=== PATIENT | female | born 1960 | race Caucasian/White ===

== ENCOUNTER 2021-04-16 16:07 | Inpatient (IN) | payer BC, OTHER, SELFPAY ==
[2021-04-16] MEDS ORDERED: Dexamethasone 10 MG/ML VIAL ONE (16:47)
[2021-04-16] MEDS ORDERED: Ondansetron PF 4 MG/2 ML Vial ONE (16:47)
[2021-04-16] MEDS ORDERED: Ventolin HFA Inhaler 60 PUFF INHALER ONE (17:01)
[2021-04-16 17:03] LABS: #Eosinphils 0.1 10x3/uL (0.0-0.5); #Monocytes 0.2 10x3/uL (0.0-1.1); #Neutrophils 1.4 10x3/uL (1.5-8.4); %Basophils 0.9 % (0.0-2.0); %Eosinophils 3.9 % (0.0-6.0); %Lymphocytes 17.9 % (18.0-47.0); %Monocytes 9.6 % (0.0-10.0); %Neutrophils 62.9 % (40.0-75.0); Hemoglobin 8.3 g/dL (12.0-15.5); Mean Corpuscular HGB CONC 31.9 g/dL (32.0-36.0); Mean Corpuscular Hemoglobin 31.2 pg (27.0-33.0); Mean Corpuscular Volume 97.7 fl (81.6-98.3); Mean Platelet Volume 8.7 fl (7.4-10.4); Platelet Count 135 10x3/uL (150-450); RBC Distribution Width 15.3 % (11.5-14.5); Red Blood Cell (RBC) Count 2.66 10x6/uL (3.90-5.03); White Blood Cell (WBC) Count 2.3 10x3/uL (3.5-10.5)
[2021-04-16 17:47] LABS: ALT (SGPT) 6 U/L (8-55); AST (SGOT) 24 U/L (5-34); Albumin 3.2 g/dL (3.4-4.8); Alkaline Phosphatase 70 U/L (40-110); Anion Gap 23 mmol/L (10-20); BUN (Urea Nitrogen) 54 mg/dL (9.8-20.1); Bilirubin, Total 0.3 mg/dL (0.2-1.2); Calc. Creatinine Clearance 0 mL/min (70-130); Chloride 110 mmol/L (98-107); Glucose 71 mg/dL (80-115); Potassium 3.9 mmol/L (3.5-5.1); Protein, Total 6.2 g/dL (5.8-8.1); Sodium 138 mmol/L (136-145)
[2021-04-16] MEDS ORDERED: cefTRIAXone\\ROCEPHIN 2 GM VIAL ONE (17:55)
[2021-04-16] MEDS ORDERED: Azithromycin 500 MG VIAL ONE (17:55)
[2021-04-16 18:04] LABS: SARS-CoV-2 NAA Rapid Test DETECTED (NotDetected)
[2021-04-16 18:12] LABS: Carbon Dioxide 8 mmol/L (23-31)
[2021-04-16 20:13] LABS: Troponin I 0.089 ng/mL (< 0.028)
[2021-04-16 20:16] LABS: Magnesium 1.7 mg/dL (1.6-2.6); Phosphorus 7.9 mg/dL (2.3-4.7)
[2021-04-16] MEDS ORDERED: Aspirin Chewable 81 MG TAB ONE (20:40)
[2021-04-16] MEDS ORDERED: Heparin 5,000 UNITS/ML VIAL ONE (20:40)
[2021-04-16] MEDS ORDERED: Ascorbic Acid 500 mg Chewable Tablet ONE (20:42)
[2021-04-16] MEDS ORDERED: Ventolin HFA Inhaler 60 PUFF INHALER INH PRN (20:59)
[2021-04-16] MEDS ORDERED: Aspirin 81 mg Enteric Coated Tablet PO SCH (21:00)
[2021-04-16] MEDS ORDERED: Cholecalciferol 1,000 UNITS (25 MCG) TAB PO SCH (21:00)
[2021-04-16] MEDS: Sodium Chloride 0.9% 1,000 ML IV SCH (21:00)
[2021-04-16] MEDS: Heparin 5,000 UNITS/ML VIAL SC SCH (21:03)
[2021-04-16] MEDS: Ascorbic Acid 500 mg Chewable Tablet PO SCH (21:09)
[2021-04-16 22:50] LABS: Troponin I 0.088 ng/mL (< 0.028)
[2021-04-17 01:46] LABS: Bilirubin Neg (Negative); Blood, Urine Negative (Negative); Clarity Clear (Clear); Glucose, Urine (Dipstick) 100 mg/dL (Negative); Ketone, Urine 15 mg/dL (Negative); Leukocyte Negative (Negative); Nitrite Negative (Negative); Protein, Urine (Dipstick) 500 mg/dl (Neg-Trace); Urobilinogen Normal mg/dL (Less than 2)
[2021-04-17 02:09] LABS: Urine Culture Reflex No No
[2021-04-17 02:13] LABS: Bacteria/HPF None Seen HPF (None Seen); RBC/HPF 0-3 HPF (0-3); WBC/HPF 0-3 HPF (0-3)
[2021-04-17] MEDS: Sodium Chloride 0.9% 1,000 ML IV SCH (05:40)
[2021-04-17 05:49] LABS: Anion Gap 19 mmol/L (10-20); BUN (Urea Nitrogen) 53 mg/dL (9.8-20.1); CRP (Inflammatory) 4.11 mg/dL (= or < 0.5); Calc. Creatinine Clearance 0 mL/min (70-130); Calcium 6.9 mg/dL (7.8-10.44); Carbon Dioxide 10 mmol/L (23-31); Chloride 114 mmol/L (98-107); Glucose 191 mg/dL (80-115); Iron 33 ug/dL (50-170); Iron Binding Capacity, Total 168 mcg/dL (265-497); Potassium 3.8 mmol/L (3.5-5.1); Sodium 139 mmol/L (136-145)
[2021-04-17 05:52] LABS: Mean Corpuscular HGB CONC 32.6 g/dL (32.0-36.0); Mean Corpuscular Hemoglobin 31.3 pg (27.0-33.0); Mean Platelet Volume 9.1 fl (7.4-10.4); Platelet Count 104 10x3/uL (150-450); RBC Distribution Width 15.2 % (11.5-14.5); Red Blood Cell (RBC) Count 2.24 10x6/uL (3.90-5.03); White Blood Cell (WBC) Count 1.4 10x3/uL (3.5-10.5)
[2021-04-17 06:06] LABS: Ferritin 1399.35 ng/mL (10-291)
[2021-04-17 06:52] LABS: MDiff Complete? YES; Microcytosis SLIGHT = 6-15 cells (100X) (0-5/hpf)
[2021-04-17 06:53] LABS: Anisocytosis MODERATE=16-30 cells (100X) (0-5/hpf); Platelet Morphology Comment Appears Decreased; Schistocytes SLIGHT = 2-5 cells (100X) (0-1/hpf); Tear Drops SLIGHT = 2-5 cells (100X) (0-1/hpf)
[2021-04-17 06:57] LABS: Band 12 % (5-11); Lymphocytes 21 % (21-51); Monocytes 3 % (0-10); Neutrophil 61 % (42-75); Reactive Lymphocytes 2 % (0-10)
[2021-04-17] MEDS ORDERED: Cholecalciferol 1,000 UNITS (25 MCG) TAB PO SCH (09:00)
[2021-04-17] MEDS ORDERED: Ascorbic Acid 500 mg Chewable Tablet ONE (09:00)
[2021-04-17] MEDS ORDERED: Sodium Bicarbonate 75 MEQ, Admixture Fee 1 EACH in Dextrose 5% in Water 500 ML IV SCH (09:00)
[2021-04-17] MEDS ORDERED: Zinc Sulfate 220 MG CAP ONE (09:01)
[2021-04-17] MEDS: Aspirin 81 mg Enteric Coated Tablet PO SCH (09:01)
[2021-04-17] MEDS: Ascorbic Acid 500 mg Chewable Tablet PO SCH ×2 (09:01→22:18)
[2021-04-17] MEDS: Zinc Sulfate 220 MG CAP PO SCH (09:01)
[2021-04-17] MEDS ORDERED: Cholecalciferol 1,000 UNITS (25 MCG) TAB ONE (09:01)
[2021-04-17] MEDS ORDERED: Heparin 5,000 UNITS/ML VIAL ONE (09:02)
[2021-04-17] MEDS ORDERED: Aspirin Chewable 81 MG TAB ONE (09:02)
[2021-04-17] MEDS: Heparin 5,000 UNITS/ML VIAL SC SCH ×3 (09:03→22:45)
[2021-04-17 13:00] LABS: Vitamin B12 Greater than 2000 pg/mL (211-911)
[2021-04-17] MEDS: Azithromycin 500 MG in Sodium Chloride 0.9% 250 ML 250 ML IVPB SCH (17:14)
[2021-04-17] MEDS: Nicotine 14 MG PATCH TD SCH (17:15)
[2021-04-17] MEDS: Calcium Carbonate 600 MG + Vit D TAB PO SCH (17:15)
[2021-04-17] MEDS: Sodium Bicarbonate 75 MEQ, Admixture Fee 1 EACH in Dextrose 5% in Water 500 ML IV SCH (17:36)
[2021-04-17] MEDS ORDERED: cefTRIAXone\\ROCEPHIN 1 GM in Sodium Chloride 0.9% 100 ML IVPB SCH (18:00)
[2021-04-17] MEDS ORDERED: Ondansetron PF 4 MG/2 ML Vial IVP PRN (19:38)
[2021-04-17] MEDS ORDERED: Promethazine 25 MG TAB PO PRN (19:40)
[2021-04-17] MEDS: cefTRIAXone\\ROCEPHIN 1 GM in Sodium Chloride 0.9% 100 ML IVPB SCH (22:19)
[2021-04-17] MEDS ORDERED: Sodium Chloride 0.9% 1,000 ML IV SCH (23:45)
[2021-04-18] MEDS ORDERED: Metoprolol Tartrate 5 MG/5 ML VIAL IVP SCH (01:45)
[2021-04-18] MEDS ORDERED: methylPREDNISolone Sod Succ/PF 125 MG/2 ML VIAL IVP SCH (02:00)
[2021-04-18] MEDS ORDERED: Furosemide 40 MG/4 ML VIAL SLOW IVP SCH (02:00)
[2021-04-18] MEDS ORDERED: Furosemide 40 MG/4 ML VIAL ONE (02:06)
[2021-04-18] MEDS ORDERED: Ventolin HFA Inhaler 60 PUFF INHALER INH SCH (02:15)
[2021-04-18] MEDS: Ventolin HFA Inhaler 60 PUFF INHALER INH SCH ×6 (03:23→23:10)
[2021-04-18] MEDS: Acetaminophen 325 MG TAB PO PRN (04:38)
[2021-04-18] MEDS ORDERED: cloNIDine 0.1 MG TAB PO SCH (04:45)
[2021-04-18 06:07] LABS: Hemoglobin 7.2 g/dL (12.0-15.5); MDiff Complete? YES; Manual Diff?? YES; Mean Corpuscular HGB CONC 32.4 g/dL (32.0-36.0); Mean Corpuscular Hemoglobin 31.2 pg (27.0-33.0); Mean Corpuscular Volume 96.1 fl (81.6-98.3); Mean Platelet Volume 9.4 fl (7.4-10.4); Platelet Count 110 10x3/uL (150-450); Red Blood Cell (RBC) Count 2.31 10x6/uL (3.90-5.03); White Blood Cell (WBC) Count 1.4 10x3/uL (3.5-10.5)
[2021-04-18 06:15] LABS: ALT (SGPT) Less than 6 U/L (8-55); AST (SGOT) 18 U/L (5-34); Albumin 2.7 g/dL (3.4-4.8); Alkaline Phosphatase 56 U/L (40-110); Anion Gap 17 mmol/L (10-20); BUN (Urea Nitrogen) 50 mg/dL (9.8-20.1); Bilirubin, Total 0.2 mg/dL (0.2-1.2); Calc. Creatinine Clearance 8 mL/min (70-130); Calcium 6.8 mg/dL (7.8-10.44); Carbon Dioxide 12 mmol/L (23-31); Chloride 113 mmol/L (98-107); Globulin 2.8 g/dL (2.4-3.5); Glucose 133 mg/dL (80-115); Protein, Total 5.5 g/dL (5.8-8.1); Sodium 139 mmol/L (136-145)
[2021-04-18 06:20] LABS: Phosphorus 5.7 mg/dL (2.3-4.7)
[2021-04-18 07:05] LABS: Band 17 % (5-11); Lymphocytes 12 % (21-51); Metamyelocyte 1 % (0-0); Monocytes 3 % (0-10); Neutrophil 66 % (42-75); Nucleated RBC 1 % (0); Reactive Lymphocytes 1 % (0-10)
[2021-04-18 07:07] LABS: Anisocytosis SLIGHT = 6-15 cells (100X) (0-5/hpf); Hypochromia SLIGHT = 6-15 cells (100X) (0-5/hpf); Macrocytosis SLIGHT = 6-15 cells (100X) (0-5/hpf); Microcytosis SLIGHT = 6-15 cells (100X) (0-5/hpf); Platelet Morphology Comment Appears Decreased
[2021-04-18 07:08] LABS: Tear Drops SLIGHT = 2-5 cells (100X) (0-1/hpf)
[2021-04-18 08:36] LABS: Magnesium 1.3 mg/dL (1.6-2.6)
[2021-04-18] MEDS: methylPREDNISolone Sod Succ/PF 125 MG/2 ML VIAL IVP SCH ×3 (09:26→20:14)
[2021-04-18] MEDS: Calcium Carbonate 600 MG + Vit D TAB PO SCH ×2 (09:26→17:07)
[2021-04-18] MEDS: Potassium Bicarbonate/Cit Ac 20 MEQ TAB PO SCH ×2 (09:26→14:30)
[2021-04-18] MEDS: Metoprolol Tartrate 25 MG TAB PO SCH ×2 (09:27→20:15)
[2021-04-18] MEDS: Heparin 5,000 UNITS/ML VIAL SC SCH (09:27)
[2021-04-18] MEDS: Ascorbic Acid 500 mg Chewable Tablet PO SCH ×2 (09:27→20:15)
[2021-04-18] MEDS: Aspirin 81 mg Enteric Coated Tablet PO SCH (09:27)
[2021-04-18] MEDS: Amlodipine 5 MG TAB PO SCH (09:27)
[2021-04-18] MEDS: Zinc Sulfate 220 MG CAP PO SCH (09:27)
[2021-04-18] MEDS: Sodium Bicarbonate 75 MEQ, Admixture Fee 1 EACH in Dextrose 5% in Water 500 ML IV SCH (09:41)
[2021-04-18] MEDS ORDERED: Magnesium Sulfate 4 GM in Sodium Chloride 0.9% 250 ML 250 ML IVPB SCH (09:45)
[2021-04-18] MEDS: Magnesium 2 GM/50 ML 2 GM in Premix Bag 1 BAG IVPB SCH ×2 (11:27→12:35)
[2021-04-18] MEDS ORDERED: Potassium Bicarbonate/Cit Ac 20 MEQ TAB PO SCH (14:30)
[2021-04-18] MEDS: Nicotine 14 MG PATCH TD SCH (14:31)
[2021-04-18] MEDS: Azithromycin 500 MG in Sodium Chloride 0.9% 250 ML 250 ML IVPB SCH (17:07)
[2021-04-18] MEDS: cefTRIAXone\\ROCEPHIN 1 GM in Sodium Chloride 0.9% 100 ML IVPB SCH (20:15)
[2021-04-18] MEDS: Melatonin 3 MG TAB PO PRN (22:11)
[2021-04-19] MEDS: Sodium Bicarbonate 75 MEQ, Admixture Fee 1 EACH in Dextrose 5% in Water 500 ML IV SCH ×3 (00:43→17:27)
[2021-04-19] MEDS: methylPREDNISolone Sod Succ/PF 125 MG/2 ML VIAL IVP SCH ×4 (02:35→20:23)
[2021-04-19] MEDS: Ventolin HFA Inhaler 60 PUFF INHALER INH SCH ×6 (02:47→23:03)
[2021-04-19 07:16] LABS: Hemoglobin 6.3 g/dL (12.0-15.5); Mean Corpuscular HGB CONC 33.7 g/dL (32.0-36.0); Mean Corpuscular Hemoglobin 31.5 pg (27.0-33.0); Mean Corpuscular Volume 93.5 fl (81.6-98.3); Mean Platelet Volume 9.4 fl (7.4-10.4); Platelet Count 100 10x3/uL (150-450); RBC Distribution Width 14.6 % (11.5-14.5); White Blood Cell (WBC) Count 1.4 10x3/uL (3.5-10.5)
[2021-04-19 07:22] LABS: MDiff Complete? YES; Manual Diff?? YES
[2021-04-19 07:44] LABS: ALT (SGPT) Less than 6 U/L (8-55); AST (SGOT) 14 U/L (5-34); Albumin 2.5 g/dL (3.4-4.8); Alkaline Phosphatase 46 U/L (40-110); Anion Gap 18 mmol/L (10-20); BUN (Urea Nitrogen) 50 mg/dL (9.8-20.1); Bilirubin, Total 0.2 mg/dL (0.2-1.2); Calc. Creatinine Clearance 8 mL/min (70-130); Calcium 6.9 mg/dL (7.8-10.44); Carbon Dioxide 19 mmol/L (23-31); Chloride 105 mmol/L (98-107); Globulin 2.5 g/dL (2.4-3.5); Glucose 217 mg/dL (80-115); Magnesium 2.4 mg/dL (1.6-2.6); Potassium 3.4 mmol/L (3.5-5.1); Sodium 139 mmol/L (136-145)
[2021-04-19 08:16] LABS: Monocytes 5 % (0-10); Reactive Lymphocytes 1 % (0-10)
[2021-04-19 08:17] LABS: Band 5 % (5-11); Lymphocytes 8 % (21-51); Neutrophil 81 % (42-75)
[2021-04-19 08:18] LABS: Platelet Morphology Comment Appears Decreased
[2021-04-19 08:23] LABS: Ovalocytes SLIGHT = 2-5 cells (100X) (0-1/hpf)
[2021-04-19] MEDS: Ascorbic Acid 500 mg Chewable Tablet PO SCH ×2 (08:31→20:23)
[2021-04-19] MEDS: Amlodipine 5 MG TAB PO SCH (08:31)
[2021-04-19] MEDS: Metoprolol Tartrate 25 MG TAB PO SCH ×2 (08:31→20:23)
[2021-04-19] MEDS: Calcium Carbonate 600 MG + Vit D TAB PO SCH ×2 (08:31→17:26)
[2021-04-19] MEDS: Zinc Sulfate 220 MG CAP PO SCH (08:31)
[2021-04-19] MEDS: Aspirin 81 mg Enteric Coated Tablet PO SCH (08:31)
[2021-04-19] MEDS: Pantoprazole 40 MG VIAL IVP SCH ×2 (11:50→20:24)
[2021-04-19] MEDS ORDERED: Amlodipine 5 MG TAB PO SCH (14:00)
[2021-04-19] MEDS ORDERED: Potassium Bicarbonate/Cit Ac 20 MEQ TAB PO SCH (14:00)
[2021-04-19] MEDS ORDERED: Megestrol Acetate 400 MG/10 ML UDCUP PO SCH (14:00)
[2021-04-19] MEDS ORDERED: EPOETIN ALFA-EPBX (ESRD) 3,000 UNIT/ML VIAL SC SCH (14:00)
[2021-04-19] MEDS: Nicotine 14 MG PATCH TD SCH (14:30)
[2021-04-19] MEDS: ALPRAZolam 0.5 MG TAB PO PRN ×2 (14:34→20:24)
[2021-04-19 15:55] LABS: Creatinine, Urine 52.64 mg/dL (47-110)
[2021-04-19] MEDS: Ferrous Sulfate 325 MG TAB PO SCH (17:26)
[2021-04-19] MEDS: Azithromycin 500 MG in Sodium Chloride 0.9% 250 ML 250 ML IVPB SCH (17:26)
[2021-04-19] MEDS: cefTRIAXone\\ROCEPHIN 1 GM in Sodium Chloride 0.9% 100 ML IVPB SCH (20:23)
[2021-04-19] MEDS: Melatonin 3 MG TAB PO PRN (20:24)
[2021-04-20] MEDS: Sodium Bicarbonate 75 MEQ, Admixture Fee 1 EACH in Dextrose 5% in Water 500 ML IV SCH (01:21)
[2021-04-20] MEDS: methylPREDNISolone Sod Succ/PF 125 MG/2 ML VIAL IVP SCH ×3 (01:21→22:17)
[2021-04-20] MEDS: Ventolin HFA Inhaler 60 PUFF INHALER INH SCH ×7 (03:10→23:05)
[2021-04-20 05:42] LABS: #Monocytes 0.1 10x3/uL (0.0-1.1); %Lymphocytes 4.8 % (18.0-47.0); %Monocytes 3.6 % (0.0-10.0); Hemoglobin 8.5 g/dL (12.0-15.5); Mean Corpuscular Hemoglobin 30.1 pg (27.0-33.0); Mean Corpuscular Volume 88.7 fl (81.6-98.3); Mean Platelet Volume 9.5 fl (7.4-10.4); Platelet Count 112 10x3/uL (150-450); RBC Distribution Width 16.5 % (11.5-14.5); Red Blood Cell (RBC) Count 2.82 10x6/uL (3.90-5.03); White Blood Cell (WBC) Count 3.3 10x3/uL (3.5-10.5)
[2021-04-20 05:50] LABS: ALT (SGPT) Less than 6 U/L (8-55); AST (SGOT) 15 U/L (5-34); Albumin 2.6 g/dL (3.4-4.8); Alkaline Phosphatase 50 U/L (40-110); Anion Gap 19 mmol/L (10-20); BUN (Urea Nitrogen) 53 mg/dL (9.8-20.1); Bilirubin, Total 0.3 mg/dL (0.2-1.2); Calc. Creatinine Clearance 9 mL/min (70-130); Calcium 6.7 mg/dL (7.8-10.44); Carbon Dioxide 23 mmol/L (23-31); Chloride 101 mmol/L (98-107); Glucose 181 mg/dL (80-115); Potassium 3.6 mmol/L (3.5-5.1); Protein, Total 5.6 g/dL (5.8-8.1); Sodium 139 mmol/L (136-145)
[2021-04-20] MEDS: Calcium Carbonate 600 MG + Vit D TAB PO SCH (09:20)
[2021-04-20] MEDS: Lactated Ringer's 1,000 ML IV SCH ×3 (09:20→21:00)
[2021-04-20] MEDS: Ferrous Sulfate 325 MG TAB PO SCH ×2 (09:20→16:47)
[2021-04-20] MEDS: Metoprolol Tartrate 25 MG TAB PO SCH ×2 (09:21→22:21)
[2021-04-20] MEDS: Megestrol Acetate 400 MG/10 ML UDCUP PO SCH (09:21)
[2021-04-20] MEDS: Ascorbic Acid 500 mg Chewable Tablet PO SCH ×2 (09:21→22:15)
[2021-04-20] MEDS: Pantoprazole 40 MG VIAL IVP SCH ×2 (09:21→22:20)
[2021-04-20] MEDS: Amlodipine 5 MG TAB PO SCH (09:21)
[2021-04-20] MEDS: Zinc Sulfate 220 MG CAP PO SCH (09:22)
[2021-04-20] MEDS ORDERED: Calcium Carbonate 500 MG ChewTAB PO PRN (10:06)
[2021-04-20] MEDS: Nicotine 14 MG PATCH TD SCH (13:33)
[2021-04-20] MEDS: ALPRAZolam 0.5 MG TAB PO PRN (15:44)
[2021-04-20] MEDS: Calcium Carbonate 500 MG ChewTAB PO SCH ×2 (15:44→22:16)
[2021-04-20] MEDS: Azithromycin 500 MG in Sodium Chloride 0.9% 250 ML 250 ML IVPB SCH (16:47)
[2021-04-20] MEDS: cefTRIAXone\\ROCEPHIN 1 GM in Sodium Chloride 0.9% 100 ML IVPB SCH (22:16)
[2021-04-21] MEDS: Ventolin HFA Inhaler 60 PUFF INHALER INH SCH ×6 (03:00→22:10)
[2021-04-21] MEDS: ALPRAZolam 0.5 MG TAB PO PRN (04:52)
[2021-04-21 05:28] LABS: #Monocytes 0.2 10x3/uL (0.0-1.1); #Neutrophils 4.7 10x3/uL (1.5-8.4); %Lymphocytes 3.3 % (18.0-47.0); %Neutrophils 92.9 % (40.0-75.0); Hemoglobin 9.1 g/dL (12.0-15.5); Mean Corpuscular HGB CONC 32.4 g/dL (32.0-36.0); Mean Corpuscular Hemoglobin 30.1 pg (27.0-33.0); Mean Platelet Volume 9.2 fl (7.4-10.4); Platelet Count 127 10x3/uL (150-450); RBC Distribution Width 16.5 % (11.5-14.5); Red Blood Cell (RBC) Count 3.02 10x6/uL (3.90-5.03); White Blood Cell (WBC) Count 5.1 10x3/uL (3.5-10.5)
[2021-04-21 05:29] LABS: ALT (SGPT) 6 U/L (8-55); AST (SGOT) 17 U/L (5-34); Albumin 2.7 g/dL (3.4-4.8); Alkaline Phosphatase 52 U/L (40-110); Anion Gap 20 mmol/L (10-20); BUN (Urea Nitrogen) 55 mg/dL (9.8-20.1); Bilirubin, Total 0.2 mg/dL (0.2-1.2); Calc. Creatinine Clearance 10 mL/min (70-130); Calcium 7.1 mg/dL (7.8-10.44); Carbon Dioxide 21 mmol/L (23-31); Chloride 101 mmol/L (98-107); Globulin 3.2 g/dL (2.4-3.5); Glucose 186 mg/dL (80-115); Potassium 4.2 mmol/L (3.5-5.1); Protein, Total 5.9 g/dL (5.8-8.1); Sodium 138 mmol/L (136-145)
[2021-04-21] MEDS: Megestrol Acetate 400 MG/10 ML UDCUP PO SCH (07:55)
[2021-04-21] MEDS: Pantoprazole 40 MG VIAL IVP SCH ×2 (07:55→22:00)
[2021-04-21] MEDS: Sodium Bicarbonate Tab 325 MG TAB PO SCH ×2 (07:56→22:15)
[2021-04-21] MEDS: methylPREDNISolone Sod Succ/PF 125 MG/2 ML VIAL IVP SCH ×2 (07:56→22:15)
[2021-04-21] MEDS: Zinc Sulfate 220 MG CAP PO SCH (07:56)
[2021-04-21] MEDS: Metoprolol Tartrate 50 MG TAB PO SCH ×2 (07:57→22:00)
[2021-04-21] MEDS: Calcium Carbonate 500 MG ChewTAB PO SCH ×3 (07:57→22:15)
[2021-04-21] MEDS: Ferrous Sulfate 325 MG TAB PO SCH ×2 (07:57→16:48)
[2021-04-21] MEDS: Amlodipine 5 MG TAB PO SCH (07:58)
[2021-04-21] MEDS: Ascorbic Acid 500 mg Chewable Tablet PO SCH ×2 (07:58→22:15)
[2021-04-21] MEDS: Nicotine 14 MG PATCH TD SCH (13:46)
[2021-04-21] MEDS: Lactated Ringer's 1,000 ML IV SCH (13:47)
[2021-04-21] MEDS: Azithromycin 500 MG in Sodium Chloride 0.9% 250 ML 250 ML IVPB SCH (16:49)
[2021-04-21] MEDS: cefTRIAXone\\ROCEPHIN 1 GM in Sodium Chloride 0.9% 100 ML IVPB SCH (22:00)
[2021-04-22] MEDS: ALPRAZolam 0.5 MG TAB PO PRN (00:26)
[2021-04-22] MEDS: Lactated Ringer's 1,000 ML IV SCH ×2 (01:00→13:26)
[2021-04-22] MEDS: Ventolin HFA Inhaler 60 PUFF INHALER INH SCH ×6 (03:10→23:00)
[2021-04-22 05:40] LABS: #Monocytes 0.2 10x3/uL (0.0-1.1); #Neutrophils 8.3 10x3/uL (1.5-8.4); %Basophils 0.1 % (0.0-2.0); %Lymphocytes 1.5 % (18.0-47.0); %Monocytes 2.3 % (0.0-10.0); %Neutrophils 95.2 % (40.0-75.0); Hemoglobin 9.9 g/dL (12.0-15.5); Mean Corpuscular HGB CONC 32.5 g/dL (32.0-36.0); Mean Corpuscular Hemoglobin 29.8 pg (27.0-33.0); Mean Corpuscular Volume 91.9 fl (81.6-98.3); Mean Platelet Volume 8.7 fl (7.4-10.4); Platelet Count 151 10x3/uL (150-450); Red Blood Cell (RBC) Count 3.32 10x6/uL (3.90-5.03); White Blood Cell (WBC) Count 8.8 10x3/uL (3.5-10.5)
[2021-04-22 05:53] LABS: ALT (SGPT) 8 U/L (8-55); AST (SGOT) 16 U/L (5-34); Albumin 2.6 g/dL (3.4-4.8); Alkaline Phosphatase 56 U/L (40-110); Anion Gap 18 mmol/L (10-20); BUN (Urea Nitrogen) 58 mg/dL (9.8-20.1); Bilirubin, Total 0.3 mg/dL (0.2-1.2); Calc. Creatinine Clearance 10 mL/min (70-130); Calcium 7.2 mg/dL (7.8-10.44); Carbon Dioxide 25 mmol/L (23-31); Chloride 101 mmol/L (98-107); Globulin 3.1 g/dL (2.4-3.5); Glucose 207 mg/dL (80-115); Potassium 4.6 mmol/L (3.5-5.1); Protein, Total 5.7 g/dL (5.8-8.1); Sodium 139 mmol/L (136-145)
[2021-04-22] MEDS: Megestrol Acetate 400 MG/10 ML UDCUP PO SCH (07:20)
[2021-04-22] MEDS: Amlodipine 5 MG TAB PO SCH (07:21)
[2021-04-22] MEDS: Calcium Carbonate 500 MG ChewTAB PO SCH ×3 (07:21→20:11)
[2021-04-22] MEDS: Sodium Bicarbonate Tab 325 MG TAB PO SCH ×2 (07:21→20:11)
[2021-04-22] MEDS: Zinc Sulfate 220 MG CAP PO SCH (07:21)
[2021-04-22] MEDS: Ferrous Sulfate 325 MG TAB PO SCH ×2 (07:22→16:24)
[2021-04-22] MEDS: Metoprolol Tartrate 50 MG TAB PO SCH ×2 (07:22→20:11)
[2021-04-22] MEDS: Ascorbic Acid 500 mg Chewable Tablet PO SCH ×2 (07:22→20:11)
[2021-04-22] MEDS: methylPREDNISolone Sod Succ/PF 125 MG/2 ML VIAL IVP SCH ×2 (07:24→20:11)
[2021-04-22] MEDS: Pantoprazole 40 MG VIAL IVP SCH ×2 (07:25→20:10)
[2021-04-22 09:38] LABS: Actual Bicarbonate (HCO3a) 25.6 mEq/L (22-28); Base Excess (BEa) 0.1 mEq/L (-2.0 to +3.0); CO2 Tension 45.2 mmHg (35.0-45.0); Calcium, Ionized (arterial) 1.02 mmol/L (1.12-1.30); Carboxyhemoglobin (COHb) 0.1 gm% (0.0-3.0); Hemoglobin (Hb) 10.3 g/dL (12.0-16.0); O2 Tension (PaO2), arterial 77.7 mmHg (> 80.0); Potassium - ABG Lab 4.4 mmol/L (3.70-5.30); Puncture Site RBA; pH, Arterial 7.37 (7.35-7.45)
[2021-04-22] MEDS: Nicotine 14 MG PATCH TD SCH (13:26)
[2021-04-22] MEDS: Azithromycin 500 MG in Sodium Chloride 0.9% 250 ML 250 ML IVPB SCH (16:23)
[2021-04-22] MEDS ORDERED: Bumetanide 1 MG/4 ML VIAL IVP SCH (18:00)
[2021-04-22] MEDS: Albumin 25% 25 GM/100 ML BOT IVPB SCH ×2 (18:06→23:49)
[2021-04-22] MEDS: cefTRIAXone\\ROCEPHIN 1 GM in Sodium Chloride 0.9% 100 ML IVPB SCH (20:10)
[2021-04-22] MEDS: Acetaminophen 325 MG TAB PO PRN (23:50)
[2021-04-23] MEDS: Ventolin HFA Inhaler 60 PUFF INHALER INH SCH ×6 (02:15→23:45)
[2021-04-23] MEDS: ALPRAZolam 0.5 MG TAB PO PRN ×2 (03:36→13:41)
[2021-04-23] MEDS ORDERED: Metoprolol Tartrate 25 MG TAB PO SCH (03:45)
[2021-04-23 05:06] LABS: ALT (SGPT) 7 U/L (8-55); AST (SGOT) 14 U/L (5-34); Albumin 3.5 g/dL (3.4-4.8); Alkaline Phosphatase 46 U/L (40-110); Anion Gap 20 mmol/L (10-20); BUN (Urea Nitrogen) 62 mg/dL (9.8-20.1); Bilirubin, Total 0.4 mg/dL (0.2-1.2); Calc. Creatinine Clearance 11 mL/min (70-130); Calcium 7.8 mg/dL (7.8-10.44); Carbon Dioxide 23 mmol/L (23-31); Chloride 102 mmol/L (98-107); Globulin 2.8 g/dL (2.4-3.5); Glucose 142 mg/dL (80-115); Potassium 4.4 mmol/L (3.5-5.1); Protein, Total 6.3 g/dL (5.8-8.1); Sodium 141 mmol/L (136-145)
[2021-04-23 05:10] LABS: #Monocytes 0.2 10x3/uL (0.0-1.1); #Neutrophils 7.1 10x3/uL (1.5-8.4); %Basophils 0.1 % (0.0-2.0); %Lymphocytes 2.2 % (18.0-47.0); %Neutrophils 93.7 % (40.0-75.0); Hemoglobin 9.7 g/dL (12.0-15.5); Mean Corpuscular HGB CONC 33.4 g/dL (32.0-36.0); Mean Corpuscular Volume 89.8 fl (81.6-98.3); Mean Platelet Volume 8.8 fl (7.4-10.4); Platelet Count 155 10x3/uL (150-450); RBC Distribution Width 15.9 % (11.5-14.5); Red Blood Cell (RBC) Count 3.23 10x6/uL (3.90-5.03); White Blood Cell (WBC) Count 7.6 10x3/uL (3.5-10.5)
[2021-04-23] MEDS: Albumin 25% 25 GM/100 ML BOT IVPB SCH (05:39)
[2021-04-23] MEDS: methylPREDNISolone Sod Succ/PF 125 MG/2 ML VIAL IVP SCH ×2 (08:17→20:27)
[2021-04-23] MEDS: Pantoprazole 40 MG VIAL IVP SCH ×2 (08:17→20:37)
[2021-04-23] MEDS: Ferrous Sulfate 325 MG TAB PO SCH ×3 (08:17→17:00)
[2021-04-23] MEDS: Zinc Sulfate 220 MG CAP PO SCH ×2 (08:17→08:18)
[2021-04-23] MEDS: Calcium Carbonate 500 MG ChewTAB PO SCH ×4 (08:17→20:36)
[2021-04-23] MEDS: Ascorbic Acid 500 mg Chewable Tablet PO SCH ×3 (08:17→20:36)
[2021-04-23] MEDS: Amlodipine 5 MG TAB PO SCH (08:17)
[2021-04-23] MEDS: Megestrol Acetate 400 MG/10 ML UDCUP PO SCH (08:17)
[2021-04-23] MEDS: Metoprolol Tartrate 50 MG TAB PO SCH ×2 (08:18→20:27)
[2021-04-23] MEDS: Sodium Bicarbonate Tab 325 MG TAB PO SCH ×2 (08:18→20:37)
[2021-04-23 08:46] LABS: Magnesium 1.8 mg/dL (1.6-2.6)
[2021-04-23] MEDS ORDERED: Furosemide 40 MG/4 ML VIAL SLOW IVP SCH (12:00)
[2021-04-23] MEDS: Nicotine 14 MG PATCH TD SCH (15:10)
[2021-04-23] MEDS: Acetaminophen 325 MG TAB PO PRN (16:56)
[2021-04-23] MEDS: Azithromycin 500 MG in Sodium Chloride 0.9% 250 ML 250 ML IVPB SCH (18:50)
[2021-04-23] MEDS: cefTRIAXone\\ROCEPHIN 1 GM in Sodium Chloride 0.9% 100 ML IVPB SCH (20:24)
[2021-04-24] MEDS: Ventolin HFA Inhaler 60 PUFF INHALER INH SCH ×6 (03:48→23:32)
[2021-04-24 07:20] LABS: #Monocytes 0.2 10x3/uL (0.0-1.1); #Neutrophils 8.2 10x3/uL (1.5-8.4); %Basophils 0.1 % (0.0-2.0); %Lymphocytes 1.8 % (18.0-47.0); %Monocytes 2.8 % (0.0-10.0); %Neutrophils 94.4 % (40.0-75.0); Hemoglobin 8.7 g/dL (12.0-15.5); Mean Corpuscular HGB CONC 31.5 g/dL (32.0-36.0); Mean Corpuscular Hemoglobin 29.5 pg (27.0-33.0); Mean Corpuscular Volume 93.6 fl (81.6-98.3); Mean Platelet Volume 8.6 fl (7.4-10.4); Platelet Count 154 10x3/uL (150-450); RBC Distribution Width 15.6 % (11.5-14.5); Red Blood Cell (RBC) Count 2.95 10x6/uL (3.90-5.03); White Blood Cell (WBC) Count 8.7 10x3/uL (3.5-10.5)
[2021-04-24 07:41] LABS: ALT (SGPT) 8 U/L (8-55); AST (SGOT) 21 U/L (5-34); Albumin 3.3 g/dL (3.4-4.8); Alkaline Phosphatase 45 U/L (40-110); Anion Gap 23 mmol/L (10-20); BUN (Urea Nitrogen) 67 mg/dL (9.8-20.1); Bilirubin, Total 0.3 mg/dL (0.2-1.2); Calc. Creatinine Clearance 10 mL/min (70-130); Calcium 7.9 mg/dL (7.8-10.44); Carbon Dioxide 22 mmol/L (23-31); Chloride 103 mmol/L (98-107); Globulin 2.6 g/dL (2.4-3.5); Glucose 105 mg/dL (80-115); Magnesium 1.8 mg/dL (1.6-2.6); Potassium 4.6 mmol/L (3.5-5.1); Protein, Total 5.9 g/dL (5.8-8.1); Sodium 143 mmol/L (136-145)
[2021-04-24] MEDS: methylPREDNISolone Sod Succ/PF 125 MG/2 ML VIAL IVP SCH ×2 (09:52→21:56)
[2021-04-24] MEDS: Pantoprazole 40 MG VIAL IVP SCH ×2 (09:53→21:56)
[2021-04-24] MEDS: Metoprolol Tartrate 50 MG TAB PO SCH ×2 (09:53→23:22)
[2021-04-24] MEDS: Ascorbic Acid 500 mg Chewable Tablet PO SCH ×2 (10:31→23:22)
[2021-04-24] MEDS: Calcium Carbonate 500 MG ChewTAB PO SCH ×3 (10:31→23:22)
[2021-04-24] MEDS: Ferrous Sulfate 325 MG TAB PO SCH ×2 (10:31→18:13)
[2021-04-24] MEDS: Magnesium Oxide 400 MG TAB PO SCH (10:31)
[2021-04-24] MEDS: Zinc Sulfate 220 MG CAP PO SCH (10:32)
[2021-04-24] MEDS: Megestrol Acetate 400 MG/10 ML UDCUP PO SCH (10:32)
[2021-04-24] MEDS: Sodium Bicarbonate Tab 325 MG TAB PO SCH ×2 (10:32→23:23)
[2021-04-24] MEDS: Dextrose 5%-Lactated Ringers 1,000 ML IV SCH (11:45)
[2021-04-24] MEDS ORDERED: Metoprolol Tartrate 5 MG/5 ML VIAL IVP PRN (13:49)
[2021-04-24] MEDS ORDERED: THIAMINE HCL IVPB SCH (17:30)
[2021-04-24] MEDS ORDERED: ADMIXTURE FEE IVPB SCH (17:30)
[2021-04-24] MEDS ORDERED: SODIUM CHLORIDE IVPB SCH (17:30)
[2021-04-24] MEDS: Azithromycin 500 MG in Sodium Chloride 0.9% 250 ML 250 ML IVPB SCH (18:14)
[2021-04-24] MEDS: cefTRIAXone\\ROCEPHIN 1 GM in Sodium Chloride 0.9% 100 ML IVPB SCH (21:53)
[2021-04-24] MEDS ORDERED: Morphine 4 MG/ML VIAL SLOW IVP SCH (22:15)
[2021-04-24] MEDS: THIAMINE HCL IVPB SCH (23:01)
[2021-04-24] MEDS: SODIUM CHLORIDE IVPB SCH (23:01)
[2021-04-24] MEDS: ADMIXTURE FEE IVPB SCH (23:01)
[2021-04-25] MEDS: Ventolin HFA Inhaler 60 PUFF INHALER INH SCH ×6 (03:30→23:00)
[2021-04-25 05:29] LABS: #Monocytes 0.2 10x3/uL (0.0-1.1); #Neutrophils 9.9 10x3/uL (1.5-8.4); %Basophils 0.1 % (0.0-2.0); %Lymphocytes 1.3 % (18.0-47.0); %Monocytes 1.9 % (0.0-10.0); %Neutrophils 95.9 % (40.0-75.0); Hemoglobin 8.5 g/dL (12.0-15.5); Mean Corpuscular Hemoglobin 29.7 pg (27.0-33.0); Platelet Count 200 10x3/uL (150-450); RBC Distribution Width 15.8 % (11.5-14.5); Red Blood Cell (RBC) Count 2.86 10x6/uL (3.90-5.03); White Blood Cell (WBC) Count 10.3 10x3/uL (3.5-10.5)
[2021-04-25 05:39] LABS: Anion Gap 22 mmol/L (10-20); BUN (Urea Nitrogen) 70 mg/dL (9.8-20.1); Calc. Creatinine Clearance 10 mL/min (70-130); Calcium 7.8 mg/dL (7.8-10.44); Carbon Dioxide 20 mmol/L (23-31); Chloride 105 mmol/L (98-107); Glucose 127 mg/dL (80-115); Potassium 4.7 mmol/L (3.5-5.1); Sodium 142 mmol/L (136-145)
[2021-04-25] MEDS: Dextrose 5%-Lactated Ringers 1,000 ML IV SCH (07:52)
[2021-04-25] MEDS: Lorazepam 2 MG/ML VIAL SLOW IVP PRN ×3 (08:15→20:01)
[2021-04-25] MEDS ORDERED: Sodium Bicarbonate 150 MEQ in Dextrose 5% in Water 1,000 ML IV SCH (10:00)
[2021-04-25] MEDS ORDERED: Nicotine 21 MG PATCH TD SCH (10:15)
[2021-04-25] MEDS ORDERED: Lorazepam 1 MG TAB PO PRN (10:23)
[2021-04-25] MEDS: Morphine 4 MG/ML VIAL SLOW IVP PRN ×3 (11:01→19:59)
[2021-04-25] MEDS: Sodium Bicarbonate 75 MEQ, Admixture Fee 1 EACH in Dextrose 5% in Water 500 ML IV SCH ×2 (11:01→23:57)
[2021-04-25] MEDS: THIAMINE HCL IVPB SCH ×3 (11:02→21:59)
[2021-04-25] MEDS: SODIUM CHLORIDE IVPB SCH ×3 (11:02→21:59)
[2021-04-25] MEDS: ADMIXTURE FEE IVPB SCH ×3 (11:02→21:59)
[2021-04-25] MEDS: methylPREDNISolone Sod Succ/PF 125 MG/2 ML VIAL IVP SCH ×2 (11:02→21:59)
[2021-04-25] MEDS: Calcium Carbonate 500 MG ChewTAB PO SCH ×3 (11:03→21:51)
[2021-04-25] MEDS: Ferrous Sulfate 325 MG TAB PO SCH ×2 (11:03→16:28)
[2021-04-25] MEDS: Magnesium Oxide 400 MG TAB PO SCH (11:03)
[2021-04-25] MEDS: Aspirin 81 mg Enteric Coated Tablet PO SCH (11:03)
[2021-04-25] MEDS: Ascorbic Acid 500 mg Chewable Tablet PO SCH ×2 (11:03→22:02)
[2021-04-25] MEDS: Megestrol Acetate 400 MG/10 ML UDCUP PO SCH (11:17)
[2021-04-25] MEDS: Pantoprazole 40 MG VIAL IVP SCH ×2 (11:18→22:17)
[2021-04-25] MEDS: Sodium Bicarbonate Tab 325 MG TAB PO SCH ×2 (11:18→21:37)
[2021-04-25] MEDS: Zinc Sulfate 220 MG CAP PO SCH (11:18)
[2021-04-25] MEDS: Metoprolol Tartrate 50 MG TAB PO SCH ×2 (11:18→21:36)
[2021-04-25] MEDS: Lorazepam 1 MG TAB PO SCH ×3 (11:18→21:51)
[2021-04-25] MEDS: Azithromycin 500 MG in Sodium Chloride 0.9% 250 ML 250 ML IVPB SCH (18:12)
[2021-04-25] MEDS: cefTRIAXone\\ROCEPHIN 1 GM in Sodium Chloride 0.9% 100 ML IVPB SCH (22:00)
[2021-04-26] MEDS: Ventolin HFA Inhaler 60 PUFF INHALER INH SCH ×6 (02:46→22:43)
[2021-04-26] MEDS: Morphine 4 MG/ML VIAL SLOW IVP PRN ×3 (03:04→16:08)
[2021-04-26] MEDS: Lorazepam 2 MG/ML VIAL SLOW IVP PRN (05:16)
[2021-04-26 05:38] LABS: Anion Gap 19 mmol/L (10-20); BUN (Urea Nitrogen) 68 mg/dL (9.8-20.1); BUN/Creatinine Ratio 14.53; Calc. Creatinine Clearance 10 mL/min (70-130); Calcium 7.7 mg/dL (7.8-10.44); Carbon Dioxide 24 mmol/L (23-31); Chloride 107 mmol/L (98-107); Glucose 154 mg/dL (80-115); Phosphorus 6.4 mg/dL (2.3-4.7); Potassium 4.4 mmol/L (3.5-5.1); Sodium 146 mmol/L (136-145)
[2021-04-26] MEDS: Lorazepam 1 MG TAB PO SCH (05:39)
[2021-04-26] MEDS: Sodium Bicarbonate 75 MEQ, Admixture Fee 1 EACH in Dextrose 5% in Water 500 ML IV SCH ×2 (07:31→18:55)
[2021-04-26] MEDS: SODIUM CHLORIDE IVPB SCH ×3 (09:02→21:42)
[2021-04-26] MEDS: THIAMINE HCL IVPB SCH ×3 (09:02→21:42)
[2021-04-26] MEDS: ADMIXTURE FEE IVPB SCH ×3 (09:02→21:42)
[2021-04-26] MEDS: Nicotine 21 MG PATCH TD SCH (09:03)
[2021-04-26] MEDS: Pantoprazole 40 MG VIAL IVP SCH ×2 (09:03→21:43)
[2021-04-26] MEDS: methylPREDNISolone Sod Succ/PF 125 MG/2 ML VIAL IVP SCH ×2 (09:03→21:40)
[2021-04-26] MEDS: Ferrous Sulfate 325 MG TAB PO SCH ×2 (09:04→18:09)
[2021-04-26] MEDS: Ascorbic Acid 500 mg Chewable Tablet PO SCH ×2 (09:04→23:21)
[2021-04-26] MEDS: Aspirin 81 mg Enteric Coated Tablet PO SCH (09:12)
[2021-04-26] MEDS: Magnesium Oxide 400 MG TAB PO SCH (09:12)
[2021-04-26] MEDS: Megestrol Acetate 400 MG/10 ML UDCUP PO SCH (09:12)
[2021-04-26] MEDS: Calcium Carbonate 500 MG ChewTAB PO SCH ×3 (09:12→23:22)
[2021-04-26] MEDS: Metoprolol Tartrate 50 MG TAB PO SCH ×2 (09:13→23:23)
[2021-04-26] MEDS: Sodium Bicarbonate Tab 325 MG TAB PO SCH ×2 (09:13→23:23)
[2021-04-26] MEDS: Zinc Sulfate 220 MG CAP PO SCH (09:13)
[2021-04-26 09:36] LABS: Actual Bicarbonate (HCO3a) 23.9 mEq/L (22-28); Base Excess (BEa) -2.4 mEq/L (-2.0 to +3.0); CO2 Tension 49.1 mmHg (35.0-45.0); Carboxyhemoglobin (COHb) 0.3 gm% (0.0-3.0); Hemoglobin (Hb) 8.8 g/dL (12.0-16.0); O2 Tension (PaO2), arterial 56.1 mmHg (> 80.0); Potassium - ABG Lab 4.2 mmol/L (3.70-5.30); Puncture Site LRA; pH, Arterial 7.31 (7.35-7.45)
[2021-04-26 09:37] LABS: ALV-art Gradient 139.205 mmHg (0-20)
[2021-04-26] MEDS ORDERED: Lorazepam 1 MG TAB PO PRN (10:23)
[2021-04-26] MEDS ORDERED: Furosemide 40 MG/4 ML VIAL SLOW IVP SCH (13:30)
[2021-04-26] MEDS ORDERED: levETIRAcetam in NS 500 MG in Premix Bag 1 BAG IVPB SCH (16:30)
[2021-04-26] MEDS ORDERED: Amino Acids 4.25 %/Dextrose 5% 2,000 ML BAG IV SCH (16:45)
[2021-04-26] MEDS ORDERED: Amino Acids 4.25 %/Dextrose 5% 2,000 ML IV SCH ×2 (18:00→21:00)
[2021-04-26] MEDS ORDERED: Tiotropium Bromide 4 GM INHALER IH SCH (18:30)
[2021-04-26] MEDS: Azithromycin 500 MG in Sodium Chloride 0.9% 250 ML 250 ML IVPB SCH (18:31)
[2021-04-26] MEDS: cefTRIAXone\\ROCEPHIN 1 GM in Sodium Chloride 0.9% 100 ML IVPB SCH (21:41)
[2021-04-26] MEDS: Labetalol HCl 100 MG/20 ML VIAL SLOW IVP PRN (21:58)
[2021-04-26] MEDS ORDERED: Lorazepam 2 MG/ML VIAL SLOW IVP SCH (22:30)
[2021-04-26] MEDS ORDERED: Albuterol Sulfate 2.5 mg/3 ml Neb NEB PRN (22:35)
[2021-04-26] MEDS ORDERED: Metoprolol Tartrate 5 MG/5 ML VIAL IVP SCH (23:59)
[2021-04-27] MEDS: Enoxaparin Sodium 30 MG/0.3 ML SYRINGE SC SCH ×2 (00:02→20:31)
[2021-04-27] MEDS: Morphine 4 MG/ML VIAL SLOW IVP PRN ×2 (00:25→14:22)
[2021-04-27] MEDS ORDERED: Labetalol HCl 100 MG/20 ML VIAL SLOW IVP SCH (01:00)
[2021-04-27] MEDS: Albuterol Sulfate 2.5 mg/3 ml Neb NEB SCH ×7 (02:30→23:31)
[2021-04-27] MEDS ORDERED: Metoprolol Tartrate 5 MG/5 ML VIAL IVP SCH (02:37)
[2021-04-27] MEDS ORDERED: Metoprolol Tartrate 5 MG/5 ML VIAL ONE (02:59)
[2021-04-27] MEDS ORDERED: niCARdipine 25 MG/10 ML VIAL ONE (03:57)
[2021-04-27] MEDS ORDERED: Rocuronium Bromide 10 MG/ML (10ML VIAL) ONE (06:00)
[2021-04-27 06:34] LABS: ALT (SGPT) 10 U/L (8-55); AST (SGOT) 19 U/L (5-34); Albumin 3.1 g/dL (3.4-4.8); Alkaline Phosphatase 52 U/L (40-110); Anion Gap 18 mmol/L (10-20); BUN (Urea Nitrogen) 68 mg/dL (9.8-20.1); Bilirubin, Total 0.3 mg/dL (0.2-1.2); Calc. Creatinine Clearance 9 mL/min (70-130); Calcium 7.7 mg/dL (7.8-10.44); Carbon Dioxide 26 mmol/L (23-31); Chloride 106 mmol/L (98-107); Globulin 2.5 g/dL (2.4-3.5); Glucose 167 mg/dL (80-115); Potassium 4.2 mmol/L (3.5-5.1); Protein, Total 5.6 g/dL (5.8-8.1); Sodium 146 mmol/L (136-145)
[2021-04-27 06:37] LABS: #Monocytes 0.3 10x3/uL (0.0-1.1); #Neutrophils 12.9 10x3/uL (1.5-8.4); %Basophils 0.1 % (0.0-2.0); %Lymphocytes 1.4 % (18.0-47.0); %Monocytes 2.4 % (0.0-10.0); %Neutrophils 94.8 % (40.0-75.0); Hemoglobin 8.3 g/dL (12.0-15.5); Mean Corpuscular HGB CONC 32.2 g/dL (32.0-36.0); Mean Corpuscular Hemoglobin 30.2 pg (27.0-33.0); Mean Corpuscular Volume 93.8 fl (81.6-98.3); Mean Platelet Volume 8.9 fl (7.4-10.4); Platelet Count 175 10x3/uL (150-450); RBC Distribution Width 15.5 % (11.5-14.5); Red Blood Cell (RBC) Count 2.75 10x6/uL (3.90-5.03); White Blood Cell (WBC) Count 13.6 10x3/uL (3.5-10.5)
[2021-04-27] MEDS ORDERED: Tiotropium Bromide 4 GM INHALER IH SCH (07:00)
[2021-04-27] MEDS ORDERED: methylPREDNISolone Sod Succ/PF 125 MG/2 ML VIAL IVP SCH (08:00)
[2021-04-27] MEDS: Nicotine 21 MG PATCH TD SCH (08:34)
[2021-04-27] MEDS: ADMIXTURE FEE IVPB SCH ×3 (08:35→22:17)
[2021-04-27] MEDS: SODIUM CHLORIDE IVPB SCH ×3 (08:35→22:17)
[2021-04-27] MEDS: THIAMINE HCL IVPB SCH ×3 (08:35→22:17)
[2021-04-27] MEDS: Pantoprazole 40 MG VIAL IVP SCH ×2 (08:35→20:32)
[2021-04-27] MEDS: Sodium Bicarbonate Tab 325 MG TAB PO SCH ×2 (08:35→22:06)
[2021-04-27] MEDS: Metoprolol Tartrate 50 MG TAB PO SCH ×2 (08:35→22:06)
[2021-04-27] MEDS: Calcium Carbonate 500 MG ChewTAB PO SCH ×3 (08:36→22:05)
[2021-04-27] MEDS: Magnesium Oxide 400 MG TAB PO SCH (08:36)
[2021-04-27] MEDS: Ascorbic Acid 500 mg Chewable Tablet PO SCH ×2 (08:36→22:05)
[2021-04-27] MEDS: Aspirin 81 mg Enteric Coated Tablet PO SCH (08:36)
[2021-04-27] MEDS: Ferrous Sulfate 325 MG TAB PO SCH ×2 (08:37→16:13)
[2021-04-27] MEDS: Zinc Sulfate 220 MG CAP PO SCH (09:12)
[2021-04-27 09:17] LABS: Albumin, PEP 24hr Ur 62.4 % (NOT ESTAB.); Alpha-1-Globulin, PEP 24h Ur 6.8 % (NOT ESTAB.); Alpha-2-Globulin, PEP 24h Ur 9.8 % (NOT ESTAB.); Beta Globulin, PEP 24h Ur 11.9 % (NOT ESTAB.); M-Spike,% PEP 24hr Ur Not Observed % (Not Observed); Protein, PEP 24hr calculated 3330 mg/24 hr (30-150); Protein, Urine 475.7 mg/dL (Not Estab.)
[2021-04-27] MEDS ORDERED: Lorazepam 2 MG/ML VIAL SLOW IVP PRN (10:04)
[2021-04-27] MEDS ORDERED: Lorazepam 1 MG TAB PO PRN (10:23)
[2021-04-27] MEDS ORDERED: levETIRAcetam in NS 500 MG in Premix Bag 1 BAG IVPB SCH (10:30)
[2021-04-27] MEDS ORDERED: Lorazepam 0.5 MG TAB PO SCH (10:30)
[2021-04-27] MEDS ORDERED: levETIRAcetam 500 MG in Sodium Chloride 0.9% 100 ML IVPB SCH (11:00)
[2021-04-27] MEDS: niCARdipine 25 MG in Sodium Chloride 0.9% 250 ML 250 ML IVPB SCH ×3 (11:15→20:32)
[2021-04-27] MEDS: methylPREDNISolone Sod Succ 40 MG VIAL IVP SCH ×2 (13:51→20:57)
[2021-04-27 14:37] LABS: CSF, Glucose 118 mg/dl (40-70); CSF, Protein 46 mg/dL (15-40)
[2021-04-27 14:47] LABS: CSF RBC Count - Manual 379 /cu.mm (None Seen); CSF Source CSF; CSF WBC/NonHematics Count-Man 0 /cu.mm (0-5); Clarity Clear (Clear); Tube # 2
[2021-04-27] MEDS: Azithromycin 500 MG in Sodium Chloride 0.9% 250 ML 250 ML IVPB SCH (17:21)
[2021-04-27] MEDS: Budesonide 0.5 MG/2 ML NEB NEB SCH (18:35)
[2021-04-27] MEDS: Arformoterol 15 MCG/2 ML NEB NEB SCH (18:35)
[2021-04-27] MEDS: Sodium Chloride 0.9% 1,000 ML IV SCH (19:42)
[2021-04-27] MEDS: cefTRIAXone\\ROCEPHIN 1 GM in Sodium Chloride 0.9% 100 ML IVPB SCH (20:31)
[2021-04-27] MEDS ORDERED: Magnesium 2 GM/50 ML BAG (IN WATER) ONE (20:54)
[2021-04-27] MEDS ORDERED: Magnesium 2 GM/50 ML 2 GM in Premix Bag 1 BAG IVPB SCH (21:00)
[2021-04-27] MEDS: fentaNYL Citrate-0.9 % NaCl/PF 100 ML IVPB SCH (23:55)
[2021-04-28] MEDS: Midazolam In 0.9 % NaCl/PF 100 ML IVPB SCH (00:03)
[2021-04-28 00:08] LABS: ALV-art Gradient 551.525 mmHg (0-20); Actual Bicarbonate (HCO3a) 26.8 mEq/L (22-28); Base Excess (BEa) -2.8 mEq/L (-2.0 to +3.0); CO2 Tension 82.3 mmHg (35.0-45.0); Calcium, Ionized (arterial) 1.07 mmol/L (1.12-1.30); Carboxyhemoglobin (COHb) 0.4 gm% (0.0-3.0); O2 Tension (PaO2), arterial 58.6 mmHg (> 80.0); Potassium - ABG Lab 3.5 mmol/L (3.70-5.30); Puncture Site RRA; pH, Arterial 7.13 (7.35-7.45)
[2021-04-28 00:10] LABS: ALV-art Gradient 315.675 mmHg (0-20); Actual Bicarbonate (HCO3a) 24.2 mEq/L (22-28); Base Excess (BEa) -1.8 mEq/L (-2.0 to +3.0); CO2 Tension 46.9 mmHg (35.0-45.0); Calcium, Ionized (arterial) 1.03 mmol/L (1.12-1.30); Carboxyhemoglobin (COHb) 0.3 gm% (0.0-3.0); Hemoglobin (Hb) 8.4 g/dL (12.0-16.0); O2 Tension (PaO2), arterial 338.7 mmHg (> 80.0); Potassium - ABG Lab 3.3 mmol/L (3.70-5.30); Puncture Site RRA; pH, Arterial 7.33 (7.35-7.45)
[2021-04-28] MEDS: Albumin 25% 25 GM/100 ML BOT IVPB SCH ×2 (00:30→18:24)
[2021-04-28] MEDS: Albuterol Sulfate 2.5 mg/3 ml Neb NEB SCH ×8 (01:15→22:52)
[2021-04-28] MEDS: methylPREDNISolone Sod Succ 40 MG VIAL IVP SCH ×4 (04:03→20:50)
[2021-04-28 05:47] LABS: Albumin 2.5 g/dL (3.4-4.8); Anion Gap 20 mmol/L (10-20); BUN (Urea Nitrogen) 79 mg/dL (9.8-20.1); BUN/Creatinine Ratio 16.77; Calc. Creatinine Clearance 9 mL/min (70-130); Carbon Dioxide 20 mmol/L (23-31); Chloride 106 mmol/L (98-107); Glucose 261 mg/dL (80-115); Phosphorus 4.4 mg/dL (2.3-4.7); Potassium 2.8 mmol/L (3.5-5.1); Sodium 143 mmol/L (136-145)
[2021-04-28] MEDS: Sodium Chloride 0.9% 1,000 ML IV SCH (06:08)
[2021-04-28] MEDS ORDERED: Potassium Chloride 40 MEQ in Premix Bag 1 BAG IVPB SCH (06:30)
[2021-04-28 07:16] LABS: Magnesium 2.2 mg/dL (1.6-2.6)
[2021-04-28] MEDS: Budesonide 0.5 MG/2 ML NEB NEB SCH ×2 (07:30→19:05)
[2021-04-28] MEDS: Arformoterol 15 MCG/2 ML NEB NEB SCH ×2 (07:30→19:05)
[2021-04-28] MEDS ORDERED: Dextrose 50% Abboject 50 ML SYRINGE SLOW IVP PRN (08:14)
[2021-04-28] MEDS ORDERED: Dextrose 5% in Water 1,000 ML IV PRN (08:14)
[2021-04-28] MEDS ORDERED: Pantoprazole 40 MG VIAL ONE (08:23)
[2021-04-28] MEDS: Ferrous Sulfate 325 MG TAB PO SCH ×2 (08:43→16:22)
[2021-04-28] MEDS: Sodium Bicarbonate Tab 325 MG TAB PO SCH ×2 (08:43→20:52)
[2021-04-28] MEDS: Magnesium Oxide 400 MG TAB PO SCH (08:43)
[2021-04-28] MEDS: Zinc Sulfate 220 MG CAP PO SCH (08:43)
[2021-04-28] MEDS: Aspirin 81 mg Enteric Coated Tablet PO SCH (08:44)
[2021-04-28] MEDS: Ascorbic Acid 500 mg Chewable Tablet PO SCH ×2 (08:44→20:53)
[2021-04-28] MEDS: Calcium Carbonate 500 MG ChewTAB PO SCH ×3 (08:45→20:51)
[2021-04-28] MEDS: levETIRAcetam 500 MG in Sodium Chloride 0.9% 100 ML IVPB SCH (08:45)
[2021-04-28] MEDS: Pantoprazole 40 MG VIAL IVP SCH ×2 (08:45→20:51)
[2021-04-28] MEDS: Nicotine 21 MG PATCH TD SCH (08:45)
[2021-04-28] MEDS: THIAMINE HCL IVPB SCH ×3 (08:46→21:57)
[2021-04-28] MEDS: SODIUM CHLORIDE IVPB SCH ×3 (08:46→21:57)
[2021-04-28] MEDS: ADMIXTURE FEE IVPB SCH ×3 (08:46→21:57)
[2021-04-28 08:51] LABS: Base Excess (BEa) -3.1 mEq/L (-2.0 to +3.0); CO2 Tension 39.9 mmHg (35.0-45.0); Calcium, Ionized (arterial) 1.05 mmol/L (1.12-1.30); Carboxyhemoglobin (COHb) 0.7 gm% (0.0-3.0); Hemoglobin (Hb) 7.1 g/dL (12.0-16.0); O2 Tension (PaO2), arterial 56.6 mmHg (> 80.0); Potassium - ABG Lab 3.5 mmol/L (3.70-5.30); Puncture Site RRA; pH, Arterial 7.36 (7.35-7.45)
[2021-04-28 08:56] LABS: ALV-art Gradient 250.025 mmHg (0-20)
[2021-04-28] MEDS: Metoprolol Tartrate 50 MG TAB PO SCH ×2 (09:48→20:52)
[2021-04-28 10:16] LABS: Creatinine, Urine 44.77 mg/dL (47-110)
[2021-04-28] MEDS ORDERED: Lorazepam 0.5 MG TAB PO PRN (10:23)
[2021-04-28 10:50] LABS: 24 Hr Creatinine 89.54 mg/24 hr (710-1650)
[2021-04-28 10:51] LABS: Urine Total Volume 200 mL (250-2400)
[2021-04-28 11:34] LABS: Protein - 24 Hr 1360 mg/24 hr (Less than 300); Protein, Urine 680 mg/dL (1-14)
[2021-04-28] MEDS: HumaLOG 300 UNITS/3 ML VIAL SC PRN (12:09)
[2021-04-28] MEDS ORDERED: Norepinephrine 8 MG/0.9% NS 250 ML ONE (14:21)
[2021-04-28] MEDS: Norepinephrine 8 MG/0.9% NS 250 ML IVPB SCH ×2 (14:45→20:54)
[2021-04-28] MEDS: Cefepime 1 GM in Sodium Chloride 0.9% 100 ML IVPB SCH (15:19)
[2021-04-28] MEDS ORDERED: Potassium Bicarbonate/Cit Ac 20 MEQ TAB PER TUBE SCH (16:30)
[2021-04-28 16:46] LABS: Anion Gap 16 mmol/L (10-20); BUN (Urea Nitrogen) 82 mg/dL (9.8-20.1); Calc. Creatinine Clearance 10 mL/min (70-130); Calcium 6.8 mg/dL (7.8-10.44); Carbon Dioxide 20 mmol/L (23-31); Chloride 109 mmol/L (98-107); Glucose 162 mg/dL (80-115); Potassium 3.4 mmol/L (3.5-5.1); Sodium 142 mmol/L (136-145)
[2021-04-28] MEDS: Enoxaparin Sodium 30 MG/0.3 ML SYRINGE SC SCH (20:53)
[2021-04-29] MEDS: Albuterol Sulfate 2.5 mg/3 ml Neb NEB SCH ×8 (01:07→22:59)
[2021-04-29] MEDS: methylPREDNISolone Sod Succ 40 MG VIAL IVP SCH ×4 (02:00→20:55)
[2021-04-29 04:58] LABS: Albumin 2.7 g/dL (3.4-4.8); Anion Gap 17 mmol/L (10-20); BUN (Urea Nitrogen) 94 mg/dL (9.8-20.1); BUN/Creatinine Ratio 20.43; Calc. Creatinine Clearance 10 mL/min (70-130); Calcium 7.6 mg/dL (7.8-10.44); Carbon Dioxide 20 mmol/L (23-31); Chloride 105 mmol/L (98-107); Glucose 100 mg/dL (80-115); Sodium 138 mmol/L (136-145)
[2021-04-29 05:12] LABS: Band 40 % (5-11); Hemoglobin 6.3 g/dL (12.0-15.5); Lymphocytes 1 % (21-51); MDiff Complete? YES; Mean Corpuscular HGB CONC 32.6 g/dL (32.0-36.0); Mean Corpuscular Hemoglobin 30.1 pg (27.0-33.0); Mean Corpuscular Volume 92.3 fl (81.6-98.3); Mean Platelet Volume 9.3 fl (7.4-10.4); Metamyelocyte 3 % (0-0); Monocytes 1 % (0-10); Neutrophil 55 % (42-75); Platelet Count 117 10x3/uL (150-450); Platelet Morphology Comment Appears Decreased; RBC Distribution Width 15.4 % (11.5-14.5); RBC Morphology Normal; Red Blood Cell (RBC) Count 2.09 10x6/uL (3.90-5.03); White Blood Cell (WBC) Count 18.2 10x3/uL (3.5-10.5)
[2021-04-29] MEDS: Albumin 25% 25 GM/100 ML BOT IVPB SCH ×3 (06:02→18:02)
[2021-04-29] MEDS: Arformoterol 15 MCG/2 ML NEB NEB SCH ×2 (07:29→17:20)
[2021-04-29 07:30] LABS: Hemoglobin 5.9 g/dL (12.0-15.5)
[2021-04-29] MEDS: Budesonide 0.5 MG/2 ML NEB NEB SCH ×2 (07:30→17:22)
[2021-04-29] MEDS: Sodium Bicarbonate Tab 325 MG TAB PO SCH ×2 (08:54→20:56)
[2021-04-29] MEDS: Aspirin 81 mg Enteric Coated Tablet PO SCH (08:54)
[2021-04-29] MEDS: Ferrous Sulfate 325 MG TAB PO SCH ×2 (08:55→16:43)
[2021-04-29] MEDS: Metoprolol Tartrate 50 MG TAB PO SCH (08:55)
[2021-04-29] MEDS: Magnesium Oxide 400 MG TAB PO SCH (08:55)
[2021-04-29] MEDS: Pantoprazole 40 MG VIAL IVP SCH ×2 (08:55→20:56)
[2021-04-29] MEDS: Ascorbic Acid 500 mg Chewable Tablet PO SCH ×2 (08:55→20:56)
[2021-04-29] MEDS: Nicotine 21 MG PATCH TD SCH (08:55)
[2021-04-29] MEDS: Zinc Sulfate 220 MG CAP PO SCH (08:55)
[2021-04-29] MEDS: Calcium Carbonate 500 MG ChewTAB PO SCH ×3 (08:55→20:56)
[2021-04-29] MEDS: levETIRAcetam 500 MG in Sodium Chloride 0.9% 100 ML IVPB SCH (08:59)
[2021-04-29] MEDS: THIAMINE HCL IVPB SCH ×3 (08:59→20:50)
[2021-04-29] MEDS: ADMIXTURE FEE IVPB SCH ×3 (08:59→20:50)
[2021-04-29] MEDS: SODIUM CHLORIDE IVPB SCH ×3 (08:59→20:50)
[2021-04-29] MEDS: Labetalol HCl 100 MG/20 ML VIAL SLOW IVP PRN (11:43)
[2021-04-29 12:51] LABS: Glucose 124 mg/dL (80-115)
[2021-04-29 13:17] LABS: Hep B Surf Ag Non-Reactive S/CO (NonReactive)
[2021-04-29 13:19] LABS: HBSAg Index 0.19 S/CO (0-0.99)
[2021-04-29 14:42] LABS: Hemoglobin 7.8 g/dL (12.0-15.5); Mean Corpuscular HGB CONC 32.8 g/dL (32.0-36.0); Mean Corpuscular Hemoglobin 30.2 pg (27.0-33.0); Mean Corpuscular Volume 92.2 fl (81.6-98.3); Mean Platelet Volume 9.2 fl (7.4-10.4); Platelet Count 73 10x3/uL (150-450); RBC Distribution Width 15.1 % (11.5-14.5); Red Blood Cell (RBC) Count 2.58 10x6/uL (3.90-5.03); White Blood Cell (WBC) Count 17.7 10x3/uL (3.5-10.5)
[2021-04-29] MEDS: Midazolam In 0.9 % NaCl/PF 100 ML IVPB SCH (14:59)
[2021-04-29 15:55] LABS: Monocytes 2 % (0-10)
[2021-04-29 15:59] LABS: Band 36 % (5-11); Lymphocytes 1 % (21-51); Metamyelocyte 2 % (0-0); Neutrophil 59 % (42-75)
[2021-04-29 16:02] LABS: Anisocytosis SLIGHT = 6-15 cells (100X) (0-5/hpf); Burr Cells SLIGHT = 2-5 cells (100X) (0-1/hpf); Dohle Bodies MODERATE; Microcytosis SLIGHT = 6-15 cells (100X) (0-5/hpf); Ovalocytes SLIGHT = 2-5 cells (100X) (0-1/hpf); Poikilocytosis SLIGHT = 6-15 cells (100X) (0-5/hpf)
[2021-04-29 16:03] LABS: Large Platelets SLIGHT; Platelet Morphology Comment Appears Decreased
[2021-04-29 16:04] LABS: MDiff Complete? YES
[2021-04-29] MEDS: Cefepime 1 GM in Sodium Chloride 0.9% 100 ML IVPB SCH (16:44)
[2021-04-29 17:31] LABS: HBSAB Concentration Less than 8.00 mIU/mL; Hep B Core Total Ab Non-Reactive (NonReactive); Hep B Core Total Index 0.04 S/CO (0-0.79); Hep B Surf AB Non-Reactive (NonReactive); Hep C IgG Ab Non-Reactive (NonReactive); Hep C Index 0.05 S/CO (0-0.79)
[2021-04-29] MEDS ORDERED: Diltiazem 125 MG/25 ML FS SCH (20:30)
[2021-04-29] MEDS ORDERED: Diltiazem 125 MG in Sodium Chloride 0.9% 100 ML IVPB SCH (21:30)
[2021-04-29] MEDS: Diltiazem 125 MG in Sodium Chloride 0.9% 100 ML IVPB SCH (21:48)
[2021-04-30] MEDS: fentaNYL Citrate-0.9 % NaCl/PF 100 ML IVPB SCH (00:33)
[2021-04-30] MEDS: Albuterol Sulfate 2.5 mg/3 ml Neb NEB SCH ×8 (01:53→22:55)
[2021-04-30] MEDS: methylPREDNISolone Sod Succ 40 MG VIAL IVP SCH ×3 (02:35→14:41)
[2021-04-30 06:00] LABS: Hemoglobin 7.8 g/dL (12.0-15.5); Mean Corpuscular HGB CONC 33.9 g/dL (32.0-36.0); Mean Corpuscular Hemoglobin 30.8 pg (27.0-33.0); Mean Corpuscular Volume 90.9 fl (81.6-98.3); Mean Platelet Volume 10.2 fl (7.4-10.4); Platelet Count 69 10x3/uL (150-450); RBC Distribution Width 15.2 % (11.5-14.5); Red Blood Cell (RBC) Count 2.53 10x6/uL (3.90-5.03); White Blood Cell (WBC) Count 22.1 10x3/uL (3.5-10.5)
[2021-04-30 06:38] LABS: MDiff Complete? YES; Platelet Morphology Comment Appears Decreased
[2021-04-30 06:39] LABS: RBC Morphology Normal
[2021-04-30 06:41] LABS: Band 12 % (5-11); Lymphocytes 1 % (21-51); Monocytes 4 % (0-10); Neutrophil 83 % (42-75)
[2021-04-30 07:02] LABS: Albumin 3.1 g/dL (3.4-4.8); Anion Gap 19 mmol/L (10-20); BUN (Urea Nitrogen) 104 mg/dL (9.8-20.1); BUN/Creatinine Ratio 22.13; Calc. Creatinine Clearance 13 mL/min (70-130); Calcium 8.6 mg/dL (7.8-10.44); Carbon Dioxide 17 mmol/L (23-31); Chloride 102 mmol/L (98-107); Glucose 138 mg/dL (80-115); Potassium 4.1 mmol/L (3.5-5.1); Sodium 134 mmol/L (136-145)
[2021-04-30] MEDS: Arformoterol 15 MCG/2 ML NEB NEB SCH ×2 (07:26→19:21)
[2021-04-30] MEDS: Budesonide 0.5 MG/2 ML NEB NEB SCH ×2 (07:29→19:21)
[2021-04-30 08:10] LABS: Actual Bicarbonate (HCO3a) 20.2 mEq/L (22-28); Base Excess (BEa) -4.2 mEq/L (-2.0 to +3.0); CO2 Tension 34.2 mmHg (35.0-45.0); Calcium, Ionized (arterial) 1.16 mmol/L (1.12-1.30); Carboxyhemoglobin (COHb) 0.3 gm% (0.0-3.0); Hemoglobin (Hb) 8.5 g/dL (12.0-16.0); O2 Tension (PaO2), arterial 74.8 mmHg (> 80.0); Potassium - ABG Lab 4.1 mmol/L (3.70-5.30); Puncture Site RRA; pH, Arterial 7.39 (7.35-7.45)
[2021-04-30] MEDS: Aspirin 81 mg Enteric Coated Tablet PO SCH (08:15)
[2021-04-30] MEDS: Sodium Bicarbonate Tab 325 MG TAB PO SCH ×2 (08:15→21:21)
[2021-04-30] MEDS: Magnesium Oxide 400 MG TAB PO SCH (08:15)
[2021-04-30] MEDS: Zinc Sulfate 220 MG CAP PO SCH (08:15)
[2021-04-30] MEDS: Ascorbic Acid 500 mg Chewable Tablet PO SCH ×2 (08:15→21:22)
[2021-04-30] MEDS: Ferrous Sulfate 325 MG TAB PO SCH ×2 (08:15→16:06)
[2021-04-30] MEDS: levETIRAcetam 500 MG in Sodium Chloride 0.9% 100 ML IVPB SCH (08:16)
[2021-04-30] MEDS: Nicotine 21 MG PATCH TD SCH (08:16)
[2021-04-30] MEDS: Pantoprazole 40 MG VIAL IVP SCH ×2 (08:16→21:21)
[2021-04-30] MEDS: THIAMINE HCL IVPB SCH ×3 (08:16→21:00)
[2021-04-30] MEDS: ADMIXTURE FEE IVPB SCH ×3 (08:16→21:00)
[2021-04-30] MEDS: Calcium Carbonate 500 MG ChewTAB PO SCH ×3 (08:16→21:00)
[2021-04-30] MEDS: SODIUM CHLORIDE IVPB SCH ×3 (08:16→21:00)
[2021-04-30] MEDS ORDERED: Vancomycin HCl 250 MG in Sodium Chloride 0.9% 100 ML IVPB SCH (08:45)
[2021-04-30] MEDS ORDERED: Vancomycin HCl 750 MG in Sodium Chloride 0.9% 250 ML 250 ML IVPB SCH (08:45)
[2021-04-30] MEDS ORDERED: Vancomycin 1 GM in Premix Bag 1 BAG IVPB SCH ×2 (08:45→09:00)
[2021-04-30] MEDS ORDERED: Vancomycin HCl 500 MG in Sodium Chloride 0.9% 100 ML IVPB SCH (08:45)
[2021-04-30] MEDS ORDERED: HOLD VANCOMYCIN FOR LEVEL >20 FS SCH (08:45)
[2021-04-30] MEDS ORDERED: VANCOMYCIN 1.25 GM/250 ML BAG 1.25 GM in Premix Bag 1 BAG IVPB SCH (09:00)
[2021-04-30] MEDS: Cefepime 1 GM in Sodium Chloride 0.9% 100 ML IVPB SCH (16:06)
[2021-04-30] MEDS: Diltiazem 125 MG in Sodium Chloride 0.9% 100 ML IVPB SCH (16:48)
[2021-04-30] MEDS: HumaLOG 300 UNITS/3 ML VIAL SC PRN (17:29)
[2021-04-30] MEDS: Milk Of Magnesia 30 ML UDCUP PER TUBE PRN (17:59)
[2021-04-30] MEDS ORDERED: methylPREDNISolone Sod Succ 40 MG VIAL IVP SCH (21:00)
[2021-05-01] MEDS: HumaLOG 300 UNITS/3 ML VIAL SC PRN ×3 (00:18→16:41)
[2021-05-01] MEDS: Albuterol Sulfate 2.5 mg/3 ml Neb NEB SCH ×8 (01:00→20:45)
[2021-05-01 05:22] LABS: Actual Bicarbonate (HCO3a) 22.7 mEq/L (22-28); Base Excess (BEa) -1.5 mEq/L (-2.0 to +3.0); CO2 Tension 35.4 mmHg (35.0-45.0); Calcium, Ionized (arterial) 1.18 mmol/L (1.12-1.30); Carboxyhemoglobin (COHb) 0.3 gm% (0.0-3.0); Hemoglobin (Hb) 8.2 g/dL (12.0-16.0); O2 Tension (PaO2), arterial 70.1 mmHg (> 80.0); Potassium - ABG Lab 3.9 mmol/L (3.70-5.30); Puncture Site RRA; pH, Arterial 7.42 (7.35-7.45)
[2021-05-01 05:33] LABS: Vancomycin, Random 5.6 ug/mL (See Comment)
[2021-05-01 05:43] LABS: Albumin 2.7 g/dL (3.4-4.8); Anion Gap 19 mmol/L (10-20); BUN (Urea Nitrogen) 88 mg/dL (9.8-20.1); BUN/Creatinine Ratio 23.98; Calc. Creatinine Clearance 17 mL/min (70-130); Calcium 8.8 mg/dL (7.8-10.44); Carbon Dioxide 19 mmol/L (23-31); Chloride 100 mmol/L (98-107); Glucose 150 mg/dL (80-115); Potassium 4.1 mmol/L (3.5-5.1); Sodium 134 mmol/L (136-145)
[2021-05-01 05:54] LABS: Hemoglobin 7.5 g/dL (12.0-15.5); Mean Corpuscular HGB CONC 33.2 g/dL (32.0-36.0); Mean Corpuscular Hemoglobin 30.2 pg (27.0-33.0); Mean Corpuscular Volume 91.1 fl (81.6-98.3); Mean Platelet Volume 9.9 fl (7.4-10.4); RBC Distribution Width 15.1 % (11.5-14.5); Red Blood Cell (RBC) Count 2.48 10x6/uL (3.90-5.03); White Blood Cell (WBC) Count 19.8 10x3/uL (3.5-10.5)
[2021-05-01] MEDS: fentaNYL Citrate-0.9 % NaCl/PF 100 ML IVPB SCH (06:21)
[2021-05-01 06:29] LABS: Band 4 % (5-11); Lymphocytes 2 % (21-51); Monocytes 3 % (0-10); Neutrophil 91 % (42-75)
[2021-05-01 06:30] LABS: MDiff Complete? YES
[2021-05-01 06:31] LABS: Platelet Count 62 10x3/uL (150-450); Platelet Morphology Comment Appears Decreased; RBC Morphology Normal
[2021-05-01] MEDS: Budesonide 0.5 MG/2 ML NEB NEB SCH ×2 (07:15→19:24)
[2021-05-01] MEDS: Arformoterol 15 MCG/2 ML NEB NEB SCH ×2 (07:15→19:24)
[2021-05-01] MEDS: Ferrous Sulfate 325 MG TAB PO SCH ×2 (09:15→16:33)
[2021-05-01] MEDS ORDERED: Vancomycin HCl 1 GM in Sodium Chloride 0.9% 250 ML 250 ML IVPB SCH (09:15)
[2021-05-01] MEDS: Ascorbic Acid 500 mg Chewable Tablet PO SCH ×2 (09:15→21:50)
[2021-05-01] MEDS: Zinc Sulfate 220 MG CAP PO SCH (09:15)
[2021-05-01] MEDS: Magnesium Oxide 400 MG TAB PO SCH (09:16)
[2021-05-01] MEDS: Calcium Carbonate 500 MG ChewTAB PO SCH ×3 (09:16→21:50)
[2021-05-01] MEDS: Sodium Bicarbonate Tab 325 MG TAB PO SCH ×2 (09:16→21:49)
[2021-05-01] MEDS: methylPREDNISolone Sod Succ 40 MG VIAL IVP SCH (09:17)
[2021-05-01] MEDS: levETIRAcetam 500 MG in Sodium Chloride 0.9% 100 ML IVPB SCH (09:18)
[2021-05-01] MEDS: Pantoprazole 40 MG VIAL IVP SCH ×2 (09:18→21:51)
[2021-05-01] MEDS: Milk Of Magnesia 30 ML UDCUP PER TUBE PRN (09:18)
[2021-05-01] MEDS: Nicotine 21 MG PATCH TD SCH (09:19)
[2021-05-01] MEDS: THIAMINE HCL IVPB SCH ×3 (09:26→21:48)
[2021-05-01] MEDS: ADMIXTURE FEE IVPB SCH ×3 (09:26→21:48)
[2021-05-01] MEDS: Aspirin 81 mg Enteric Coated Tablet PO SCH (09:26)
[2021-05-01] MEDS: SODIUM CHLORIDE IVPB SCH ×3 (09:26→21:48)
[2021-05-01] MEDS: Cefepime 1 GM in Sodium Chloride 0.9% 100 ML IVPB SCH (15:14)
[2021-05-01] MEDS: Docusate Sodium 100 MG/10 ML UDCUP PO SCH (21:50)
[2021-05-02] MEDS: Albuterol Sulfate 2.5 mg/3 ml Neb NEB SCH ×3 (00:35→07:18)
[2021-05-02 04:59] LABS: Hemoglobin 7.8 g/dL (12.0-15.5); Mean Corpuscular HGB CONC 33.9 g/dL (32.0-36.0); Mean Corpuscular Hemoglobin 31.1 pg (27.0-33.0); Mean Corpuscular Volume 91.6 fl (81.6-98.3); Mean Platelet Volume 10.4 fl (7.4-10.4); Platelet Count 63 10x3/uL (150-450); RBC Distribution Width 15.2 % (11.5-14.5); Red Blood Cell (RBC) Count 2.51 10x6/uL (3.90-5.03); White Blood Cell (WBC) Count 15.9 10x3/uL (3.5-10.5)
[2021-05-02 05:08] LABS: Vancomycin, Random 11.5 ug/mL (See Comment)
[2021-05-02 05:29] LABS: MDiff Complete? YES
[2021-05-02 05:29] LABS: Actual Bicarbonate (HCO3a) 25.4 mEq/L (22-28); Base Excess (BEa) 0.8 mEq/L (-2.0 to +3.0); CO2 Tension 40.4 mmHg (35.0-45.0); Calcium, Ionized (arterial) 1.17 mmol/L (1.12-1.30); Carboxyhemoglobin (COHb) 0.5 gm% (0.0-3.0); Hemoglobin (Hb) 8.6 g/dL (12.0-16.0); O2 Tension (PaO2), arterial 69.3 mmHg (> 80.0); Potassium - ABG Lab 3.6 mmol/L (3.70-5.30); Puncture Site RRA; pH, Arterial 7.42 (7.35-7.45)
[2021-05-02 05:30] LABS: Albumin 2.7 g/dL (3.4-4.8); Anion Gap 15 mmol/L (10-20); BUN (Urea Nitrogen) 48 mg/dL (9.8-20.1); BUN/Creatinine Ratio 22.75; Calc. Creatinine Clearance 32 mL/min (70-130); Calcium 8.6 mg/dL (7.8-10.44); Carbon Dioxide 26 mmol/L (23-31); Chloride 98 mmol/L (98-107); Glucose 173 mg/dL (80-115); Phosphorus 1.3 mg/dL (2.3-4.7); Potassium 3.7 mmol/L (3.5-5.1); Sodium 135 mmol/L (136-145)
[2021-05-02 05:47] LABS: Band 13 % (5-11); Lymphocytes 1 % (21-51); Monocytes 2 % (0-10); Neutrophil 84 % (42-75)
[2021-05-02 05:48] LABS: Platelet Morphology Comment Appears Decreased
[2021-05-02 05:49] LABS: Dohle Bodies SLIGHT; Toxic Granulation SLIGHT; Vacuoles SLIGHT
[2021-05-02 05:50] LABS: Anisocytosis SLIGHT = 6-15 cells (100X) (0-5/hpf); Hypochromia SLIGHT = 6-15 cells (100X) (0-5/hpf); Macrocytosis SLIGHT = 6-15 cells (100X) (0-5/hpf); Microcytosis SLIGHT = 6-15 cells (100X) (0-5/hpf)
[2021-05-02] MEDS: Arformoterol 15 MCG/2 ML NEB NEB SCH ×2 (07:47→19:35)
[2021-05-02] MEDS: Budesonide 0.5 MG/2 ML NEB NEB SCH ×2 (07:49→19:35)
[2021-05-02] MEDS ORDERED: Potassium Phosphate 15 MMOL in Sodium Chloride 0.9% 250 ML 250 ML IVPB SCH (08:00)
[2021-05-02] MEDS: Midazolam In 0.9 % NaCl/PF 100 ML IVPB SCH (08:10)
[2021-05-02] MEDS: Docusate Sodium 100 MG/10 ML UDCUP PO SCH ×2 (08:15→20:31)
[2021-05-02] MEDS ORDERED: Diltiazem 125 MG in Sodium Chloride 0.9% 100 ML IVPB SCH (08:15)
[2021-05-02] MEDS: Polyethylene Glycol 3350 17 GM Packet PER TUBE SCH (08:15)
[2021-05-02] MEDS: methylPREDNISolone Sod Succ 40 MG VIAL IVP SCH (08:26)
[2021-05-02] MEDS: levETIRAcetam 500 MG in Sodium Chloride 0.9% 100 ML IVPB SCH (08:26)
[2021-05-02] MEDS: Pantoprazole 40 MG VIAL IVP SCH ×2 (08:26→20:31)
[2021-05-02] MEDS: Ascorbic Acid 500 mg Chewable Tablet PO SCH ×2 (08:27→20:31)
[2021-05-02] MEDS: Zinc Sulfate 220 MG CAP PO SCH (08:27)
[2021-05-02] MEDS: Sodium Bicarbonate Tab 325 MG TAB PO SCH ×2 (08:28→20:30)
[2021-05-02] MEDS: Magnesium Oxide 400 MG TAB PO SCH (08:28)
[2021-05-02] MEDS: Ferrous Sulfate 325 MG TAB PO SCH ×2 (08:28→16:18)
[2021-05-02] MEDS: Nicotine 21 MG PATCH TD SCH (08:28)
[2021-05-02] MEDS: Aspirin 81 mg Enteric Coated Tablet PO SCH (08:28)
[2021-05-02] MEDS: Calcium Carbonate 500 MG ChewTAB PO SCH ×3 (08:28→20:30)
[2021-05-02] MEDS ORDERED: HOLD VANCOMYCIN FOR LEVEL >20 IVP SCH (08:30)
[2021-05-02] MEDS ORDERED: Thiamine HCl 250 MG, Admixture Fee 1 EACH in Sodium Chloride 0.9% 50 ML IVPB SCH (09:00)
[2021-05-02] MEDS ORDERED: Vancomycin HCl 500 MG in Sodium Chloride 0.9% 100 ML IVPB SCH (10:00)
[2021-05-02] MEDS: HumaLOG 300 UNITS/3 ML VIAL SC PRN ×3 (11:02→23:00)
[2021-05-02] MEDS: fentaNYL Citrate-0.9 % NaCl/PF 100 ML IVPB SCH (11:38)
[2021-05-02 12:45] LABS: Ref Lab Test Ordered ADAMTS-13 ACT; Reference Lab Name LABCORP
[2021-05-02] MEDS: Cefepime 1 GM in Sodium Chloride 0.9% 100 ML IVPB SCH (15:15)
[2021-05-03] MEDS: Labetalol HCl 100 MG/20 ML VIAL SLOW IVP PRN (03:35)
[2021-05-03 04:04] LABS: Vancomycin, Random 14.1 ug/mL (See Comment)
[2021-05-03 04:07] LABS: Platelet Count 60 10x3/uL (150-450)
[2021-05-03 04:11] LABS: Albumin 2.6 g/dL (3.4-4.8); Anion Gap 16 mmol/L (10-20); BUN (Urea Nitrogen) 67 mg/dL (9.8-20.1); BUN/Creatinine Ratio 25.97; Calc. Creatinine Clearance 25 mL/min (70-130); Calcium 8.7 mg/dL (7.8-10.44); Carbon Dioxide 23 mmol/L (23-31); Chloride 96 mmol/L (98-107); Glucose 135 mg/dL (80-115); Phosphorus 2.2 mg/dL (2.3-4.7); Potassium 4.1 mmol/L (3.5-5.1); Sodium 131 mmol/L (136-145)
[2021-05-03 04:55] LABS: Anisocytosis SLIGHT = 6-15 cells (100X) (0-5/hpf); Band 10 % (5-11); Dohle Bodies SLIGHT; Elliptocytes SLIGHT = 2-5 cells (100X) (0-1/hpf); Hemoglobin 7.8 g/dL (12.0-15.5); Lymphocytes 1 % (21-51); MDiff Complete? YES; Macrocytosis SLIGHT = 6-15 cells (100X) (0-5/hpf); Mean Corpuscular HGB CONC 33.2 g/dL (32.0-36.0); Mean Corpuscular Volume 93.3 fl (81.6-98.3); Mean Platelet Volume 11.2 fl (7.4-10.4); Microcytosis SLIGHT = 6-15 cells (100X) (0-5/hpf); Monocytes 5 % (0-10); Neutrophil 84 % (42-75); Platelet Morphology Comment Appears Decreased; Red Blood Cell (RBC) Count 2.52 10x6/uL (3.90-5.03); Toxic Granulation SLIGHT; Vacuoles SLIGHT; White Blood Cell (WBC) Count 12.6 10x3/uL (3.5-10.5)
[2021-05-03] MEDS: fentaNYL Citrate-0.9 % NaCl/PF 100 ML IVPB SCH (05:49)
[2021-05-03 06:14] LABS: ALV-art Gradient 171.375 mmHg (0-20); Actual Bicarbonate (HCO3a) 24.6 mEq/L (22-28); CO2 Tension 39.3 mmHg (35.0-45.0); Calcium, Ionized (arterial) 1.17 mmol/L (1.12-1.30); Carboxyhemoglobin (COHb) 0.7 gm% (0.0-3.0); Hemoglobin (Hb) 7.8 g/dL (12.0-16.0); O2 Tension (PaO2), arterial 64.7 mmHg (> 80.0); Puncture Site RRA; pH, Arterial 7.41 (7.35-7.45)
[2021-05-03] MEDS ORDERED: levETIRAcetam 100 mg/ml Oral Solution PO SCH (07:00)
[2021-05-03] MEDS: Arformoterol 15 MCG/2 ML NEB NEB SCH ×2 (07:25→19:42)
[2021-05-03] MEDS: Budesonide 0.5 MG/2 ML NEB NEB SCH ×2 (07:29→19:46)
[2021-05-03] MEDS: Zinc Sulfate 220 MG CAP PO SCH (08:47)
[2021-05-03] MEDS: Thiamine 100 MG TAB PO SCH (08:47)
[2021-05-03] MEDS: Calcium Carbonate 500 MG ChewTAB PO SCH ×3 (08:48→20:05)
[2021-05-03] MEDS: Sodium Bicarbonate Tab 325 MG TAB PO SCH ×2 (08:48→20:05)
[2021-05-03] MEDS: Ferrous Sulfate 325 MG TAB PO SCH ×2 (08:48→17:31)
[2021-05-03] MEDS: Aspirin Chewable 81 MG TAB PO SCH (08:48)
[2021-05-03] MEDS: Magnesium Oxide 400 MG TAB PO SCH (08:48)
[2021-05-03] MEDS: Docusate Sodium 100 MG/10 ML UDCUP PO SCH ×2 (08:49→20:05)
[2021-05-03] MEDS: Ascorbic Acid 500 mg Chewable Tablet PO SCH ×2 (08:49→20:04)
[2021-05-03] MEDS: Nicotine 21 MG PATCH TD SCH (08:49)
[2021-05-03] MEDS: Polyethylene Glycol 3350 17 GM Packet PER TUBE SCH (09:23)
[2021-05-03] MEDS: levETIRAcetam 500 mg/5 ml Oral Solution PO SCH (09:23)
[2021-05-03 15:17] LABS: CSF IgG Index 0.6 (0.0-0.7); IgG/Alb CSF 0.09 (0.00-0.25)
[2021-05-03 16:41] LABS: Heparin-Induced Ab (HITA) 0.077 OD (0.000-0.400)
[2021-05-04] MEDS: fentaNYL Citrate-0.9 % NaCl/PF 100 ML IVPB SCH (01:29)
[2021-05-04 03:59] LABS: Platelet Count 61 10x3/uL (150-450)
[2021-05-04 04:02] LABS: Vancomycin, Random 12.5 ug/mL (See Comment)
[2021-05-04 04:08] LABS: Albumin 2.2 g/dL (3.4-4.8); Anion Gap 17 mmol/L (10-20); BUN (Urea Nitrogen) 83 mg/dL (9.8-20.1); BUN/Creatinine Ratio 28.14; Calc. Creatinine Clearance 22 mL/min (70-130); Calcium 8.2 mg/dL (7.8-10.44); Carbon Dioxide 21 mmol/L (23-31); Chloride 94 mmol/L (98-107); Glucose 99 mg/dL (80-115); Potassium 4.1 mmol/L (3.5-5.1); Sodium 128 mmol/L (136-145)
[2021-05-04 04:21] LABS: Anisocytosis SLIGHT = 6-15 cells (100X) (0-5/hpf); Band 23 % (5-11); Hemoglobin 7.5 g/dL (12.0-15.5); Lymphocytes 3 % (21-51); MDiff Complete? YES; Mean Corpuscular HGB CONC 33.5 g/dL (32.0-36.0); Mean Corpuscular Volume 92.6 fl (81.6-98.3); Mean Platelet Volume 10.7 fl (7.4-10.4); Monocytes 2 % (0-10); Neutrophil 72 % (42-75); Platelet Morphology Comment Appears Decreased; RBC Distribution Width 14.8 % (11.5-14.5); Red Blood Cell (RBC) Count 2.42 10x6/uL (3.90-5.03); Tear Drops SLIGHT = 2-5 cells (100X) (0-1/hpf); White Blood Cell (WBC) Count 12.3 10x3/uL (3.5-10.5)
[2021-05-04 04:42] LABS: ALV-art Gradient 199.125 mmHg (0-20); Actual Bicarbonate (HCO3a) 20.2 mEq/L (22-28); Base Excess (BEa) -3.2 mEq/L (-2.0 to +3.0); CO2 Tension 30.3 mmHg (35.0-45.0); Calcium, Ionized (arterial) 1.23 mmol/L (1.12-1.30); Carboxyhemoglobin (COHb) 0.4 gm% (0.0-3.0); Hemoglobin (Hb) 9.6 g/dL (12.0-16.0); O2 Tension (PaO2), arterial 48.2 mmHg (> 80.0); Puncture Site LRA; pH, Arterial 7.44 (7.35-7.45)
[2021-05-04] MEDS: Milk Of Magnesia 30 ML UDCUP PER TUBE PRN (05:33)
[2021-05-04] MEDS: Arformoterol 15 MCG/2 ML NEB NEB SCH ×2 (07:20→19:00)
[2021-05-04] MEDS: Budesonide 0.5 MG/2 ML NEB NEB SCH ×2 (07:26→19:06)
[2021-05-04] MEDS: Zinc Sulfate 220 MG CAP PO SCH (09:30)
[2021-05-04] MEDS: Aspirin Chewable 81 MG TAB PO SCH (09:30)
[2021-05-04] MEDS: Docusate Sodium 100 MG/10 ML UDCUP PO SCH ×2 (09:30→20:44)
[2021-05-04] MEDS: Ascorbic Acid 500 mg Chewable Tablet PO SCH ×2 (09:30→20:44)
[2021-05-04] MEDS: Polyethylene Glycol 3350 17 GM Packet PER TUBE SCH (09:30)
[2021-05-04] MEDS: Sodium Bicarbonate Tab 325 MG TAB PO SCH (09:33)
[2021-05-04] MEDS: Nicotine 21 MG PATCH TD SCH (09:33)
[2021-05-04] MEDS: levETIRAcetam 500 mg/5 ml Oral Solution PO SCH (09:33)
[2021-05-04] MEDS: Magnesium Oxide 400 MG TAB PO SCH (09:33)
[2021-05-04] MEDS: Calcium Carbonate 500 MG ChewTAB PO SCH (09:34)
[2021-05-04] MEDS: Albumin 25% 25 GM/100 ML BOT IVPB SCH (09:39)
[2021-05-04] MEDS: Thiamine 100 MG TAB PO SCH (09:40)
[2021-05-04] MEDS: Ferrous Sulfate 325 MG TAB PO SCH ×2 (09:40→17:26)
[2021-05-04] MEDS ORDERED: Vancomycin HCl 500 MG in Sodium Chloride 0.9% 100 ML IVPB SCH (10:00)
[2021-05-04] MEDS: PHOS-NAK 1 PKT PACK PO SCH ×2 (10:18→20:44)
[2021-05-05] MEDS: Midazolam In 0.9 % NaCl/PF 100 ML IVPB SCH (03:14)
[2021-05-05] MEDS: fentaNYL Citrate-0.9 % NaCl/PF 100 ML IVPB SCH (03:15)
[2021-05-05 04:19] LABS: Albumin 2.3 g/dL (3.4-4.8); Anion Gap 15 mmol/L (10-20); BUN (Urea Nitrogen) 56 mg/dL (9.8-20.1); BUN/Creatinine Ratio 25.69; Calc. Creatinine Clearance 31 mL/min (70-130); Calcium 8.2 mg/dL (7.8-10.44); Carbon Dioxide 23 mmol/L (23-31); Chloride 94 mmol/L (98-107); Glucose 121 mg/dL (80-115); Potassium 4.4 mmol/L (3.5-5.1); Sodium 128 mmol/L (136-145)
[2021-05-05 04:23] LABS: Phosphorus 1.6 mg/dL (2.3-4.7)
[2021-05-05 04:48] LABS: ALV-art Gradient 265.925 mmHg (0-20); Actual Bicarbonate (HCO3a) 17.8 mEq/L (22-28); Base Excess (BEa) -3.8 mEq/L (-2.0 to +3.0); CO2 Tension 21.5 mmHg (35.0-45.0); Calcium, Ionized (arterial) 1.12 mmol/L (1.12-1.30); Carboxyhemoglobin (COHb) 0.2 gm% (0.0-3.0); Hemoglobin (Hb) 8.7 g/dL (12.0-16.0); O2 Tension (PaO2), arterial 63.7 mmHg (> 80.0); Potassium - ABG Lab 4.2 mmol/L (3.70-5.30); Puncture Site RRA; pH, Arterial 7.54 (7.35-7.45)
[2021-05-05 04:53] LABS: Band 36 % (5-11); Dohle Bodies SLIGHT; Eosinophils 1 % (0-10); Hemoglobin 7.4 g/dL (12.0-15.5); Lymphocytes 1 % (21-51); MDiff Complete? YES; Mean Corpuscular HGB CONC 33.3 g/dL (32.0-36.0); Mean Corpuscular Hemoglobin 30.6 pg (27.0-33.0); Mean Corpuscular Volume 91.7 fl (81.6-98.3); Mean Platelet Volume 10.7 fl (7.4-10.4); Metamyelocyte 1 % (0-0); Neutrophil 60 % (42-75); Platelet Count 64 10x3/uL (150-450); Platelet Morphology Comment Appears Decreased; RBC Distribution Width 14.9 % (11.5-14.5); RBC Morphology Normal; Reactive Lymphocytes 1 % (0-10); Red Blood Cell (RBC) Count 2.42 10x6/uL (3.90-5.03); Toxic Granulation SLIGHT; White Blood Cell (WBC) Count 12.4 10x3/uL (3.5-10.5)
[2021-05-05] MEDS ORDERED: Potassium Phosphate 30 MMOL in Sodium Chloride 0.9% 250 ML 250 ML IVPB SCH (05:45)
[2021-05-05] MEDS: Arformoterol 15 MCG/2 ML NEB NEB SCH ×2 (07:20→19:27)
[2021-05-05] MEDS: Budesonide 0.5 MG/2 ML NEB NEB SCH ×2 (07:20→19:29)
[2021-05-05] MEDS: Nicotine 21 MG PATCH TD SCH (08:33)
[2021-05-05] MEDS: Aspirin Chewable 81 MG TAB PO SCH (08:33)
[2021-05-05] MEDS: Thiamine 100 MG TAB PO SCH (08:33)
[2021-05-05] MEDS: levETIRAcetam 500 mg/5 ml Oral Solution PO SCH (08:33)
[2021-05-05] MEDS: Magnesium Oxide 400 MG TAB PO SCH (08:34)
[2021-05-05] MEDS: PHOS-NAK 1 PKT PACK PO SCH ×2 (08:34→22:02)
[2021-05-05] MEDS: Ascorbic Acid 500 mg Chewable Tablet PO SCH ×2 (08:34→22:03)
[2021-05-05] MEDS: Zinc Sulfate 220 MG CAP PO SCH (08:35)
[2021-05-05] MEDS: Ferrous Sulfate 325 MG TAB PO SCH ×2 (08:37→17:21)
[2021-05-05] MEDS: Polyethylene Glycol 3350 17 GM Packet PER TUBE SCH (08:37)
[2021-05-05] MEDS: Albumin 25% 25 GM/100 ML BOT IVPB SCH (10:46)
[2021-05-05] MEDS ORDERED: Piperacillin/Tazobactam 3.375 GM in Sodium Chloride 0.9% 100 ML IVPB SCH (14:00)
[2021-05-05] MEDS: Piperacillin/Tazobactam 3.375 GM in Sodium Chloride 0.9% 100 ML IVPB SCH (17:48)
[2021-05-05] MEDS ORDERED: methylPREDNISolone Sod Succ/PF 125 MG/2 ML VIAL IVP SCH (23:45)
[2021-05-06] MEDS ORDERED: methylPREDNISolone Sod Succ 1 GM in Sodium Chloride 0.9% 100 ML IVPB SCH (00:15)
[2021-05-06] MEDS: Norepinephrine 8 MG/0.9% NS 250 ML IVPB SCH (04:12)
[2021-05-06 05:37] LABS: Vancomycin, Random 9.7 ug/mL (See Comment)
[2021-05-06 05:42] LABS: Band 33 % (5-11); Dohle Bodies SLIGHT; Hemoglobin 7.7 g/dL (12.0-15.5); Lymphocytes 3 % (21-51); MDiff Complete? YES; Mean Corpuscular HGB CONC 32.6 g/dL (32.0-36.0); Mean Corpuscular Volume 95.2 fl (81.6-98.3); Mean Platelet Volume 10.6 fl (7.4-10.4); Metamyelocyte 3 % (0-0); Neutrophil 61 % (42-75); Platelet Count 66 10x3/uL (150-450); Platelet Morphology Comment Appears Decreased; RBC Distribution Width 15.6 % (11.5-14.5); RBC Morphology Normal; Red Blood Cell (RBC) Count 2.48 10x6/uL (3.90-5.03); Vacuoles SLIGHT; White Blood Cell (WBC) Count 8.2 10x3/uL (3.5-10.5)
[2021-05-06 05:46] LABS: Albumin 2.5 g/dL (3.4-4.8); Anion Gap 20 mmol/L (10-20); BUN (Urea Nitrogen) 85 mg/dL (9.8-20.1); BUN/Creatinine Ratio 31.48; Calc. Creatinine Clearance 25 mL/min (70-130); Carbon Dioxide 20 mmol/L (23-31); Chloride 91 mmol/L (98-107); Glucose 114 mg/dL (80-115); Potassium 5.7 mmol/L (3.5-5.1); Sodium 125 mmol/L (136-145)
[2021-05-06] MEDS: Piperacillin/Tazobactam 3.375 GM in Sodium Chloride 0.9% 100 ML IVPB SCH ×2 (06:16→18:26)
[2021-05-06] MEDS: Budesonide 0.5 MG/2 ML NEB NEB SCH ×2 (07:09→18:55)
[2021-05-06] MEDS: Arformoterol 15 MCG/2 ML NEB NEB SCH ×2 (07:09→18:55)
[2021-05-06] MEDS ORDERED: Vancomycin 1 GM in Premix Bag 1 BAG IVPB SCH (09:00)
[2021-05-06] MEDS ORDERED: Vancomycin HCl 1.25 GM in Sodium Chloride 0.9% 250 ML 250 ML IVPB SCH (09:00)
[2021-05-06] MEDS ORDERED: EPOETIN ALFA-EPBX (ESRD) 3,000 UNIT/ML VIAL SC SCH (09:00)
[2021-05-06] MEDS ORDERED: Vancomycin HCl 500 MG in Sodium Chloride 0.9% 100 ML IVPB SCH (09:00)
[2021-05-06] MEDS ORDERED: Vancomycin HCl 750 MG in Sodium Chloride 0.9% 250 ML 250 ML IVPB SCH ×2 (09:00→11:00)
[2021-05-06] MEDS: levETIRAcetam 500 mg/5 ml Oral Solution PO SCH (09:18)
[2021-05-06] MEDS: Thiamine 100 MG TAB PO SCH (09:19)
[2021-05-06] MEDS: Ascorbic Acid 500 mg Chewable Tablet PO SCH ×2 (09:19→21:22)
[2021-05-06] MEDS: Aspirin Chewable 81 MG TAB PO SCH (09:19)
[2021-05-06] MEDS: Magnesium Oxide 400 MG TAB PO SCH (09:19)
[2021-05-06] MEDS: Ferrous Sulfate 325 MG TAB PO SCH ×2 (09:19→18:27)
[2021-05-06] MEDS: Nicotine 21 MG PATCH TD SCH (09:20)
[2021-05-06] MEDS: Polyethylene Glycol 3350 17 GM Packet PER TUBE SCH (09:20)
[2021-05-06] MEDS: Zinc Sulfate 220 MG CAP PO SCH (09:20)
[2021-05-06] MEDS ORDERED: Lidocaine 1% (PF) 30 ML VIAL FS SCH (09:45)
[2021-05-06] MEDS ORDERED: Lidocaine 1% 20 ML MDV FS SCH (09:45)
[2021-05-06] MEDS ORDERED: Vancomycin HCl 1 GM in Sodium Chloride 0.9% 250 ML 250 ML IVPB SCH (10:00)
[2021-05-06] MEDS ORDERED: Albumin 25% 25 GM/100 ML BOT IVPB SCH (10:30)
[2021-05-06 11:12] LABS: Actual Bicarbonate (HCO3a) 16.7 mEq/L (22-28); Base Excess (BEa) -8.7 mEq/L (-2.0 to +3.0); CO2 Tension 33.8 mmHg (35.0-45.0); Calcium, Ionized (arterial) 1.07 mmol/L (1.12-1.30); Carboxyhemoglobin (COHb) 0.8 gm% (0.0-3.0); Hemoglobin (Hb) 8.1 g/dL (12.0-16.0); O2 Tension (PaO2), arterial 185.1 mmHg (> 80.0); Potassium - ABG Lab 5.4 mmol/L (3.70-5.30); Puncture Site RRA; pH, Arterial 7.31 (7.35-7.45)
[2021-05-06] MEDS: fentaNYL Citrate-0.9 % NaCl/PF 100 ML IVPB SCH (14:12)
[2021-05-06] MEDS: Midazolam In 0.9 % NaCl/PF 100 ML IVPB SCH (21:24)
[2021-05-07 05:03] LABS: Albumin 2.7 g/dL (3.4-4.8); Anion Gap 20 mmol/L (10-20); BUN (Urea Nitrogen) 63 mg/dL (9.8-20.1); BUN/Creatinine Ratio 30.88; Calc. Creatinine Clearance 33 mL/min (70-130); Calcium 8.1 mg/dL (7.8-10.44); Carbon Dioxide 21 mmol/L (23-31); Chloride 94 mmol/L (98-107); Glucose 170 mg/dL (80-115); Phosphorus 3.6 mg/dL (2.3-4.7); Potassium 4.2 mmol/L (3.5-5.1); Sodium 131 mmol/L (136-145)
[2021-05-07] MEDS: Piperacillin/Tazobactam 3.375 GM in Sodium Chloride 0.9% 100 ML IVPB SCH ×2 (05:12→17:37)
[2021-05-07 05:22] LABS: Band 33 % (5-11); Lymphocytes 5 % (21-51); MDiff Complete? YES; Monocytes 3 % (0-10); Neutrophil 59 % (42-75); Platelet Morphology Comment Appears Decreased; RBC Morphology Normal
[2021-05-07 05:23] LABS: Mean Platelet Volume 10.5 fl (7.4-10.4); RBC Distribution Width 15.4 % (11.5-14.5); White Blood Cell (WBC) Count 3.6 10x3/uL (3.5-10.5)
[2021-05-07 05:24] LABS: Platelet Count 58 10x3/uL (150-450)
[2021-05-07 05:29] LABS: ALV-art Gradient 300.475 mmHg (0-20); Actual Bicarbonate (HCO3a) 22.9 mEq/L (22-28); Base Excess (BEa) -0.8 mEq/L (-2.0 to +3.0); CO2 Tension 33.3 mmHg (35.0-45.0); Calcium, Ionized (arterial) 1.08 mmol/L (1.12-1.30); Carboxyhemoglobin (COHb) 0.9 gm% (0.0-3.0); Hemoglobin (Hb) 6.4 g/dL (12.0-16.0); O2 Tension (PaO2), arterial 85.7 mmHg (> 80.0); Puncture Site RRA; pH, Arterial 7.46 (7.35-7.45)
[2021-05-07] MEDS: Arformoterol 15 MCG/2 ML NEB NEB SCH ×2 (07:31→19:05)
[2021-05-07] MEDS: Budesonide 0.5 MG/2 ML NEB NEB SCH ×2 (07:37→19:05)
[2021-05-07] MEDS: fentaNYL Citrate-0.9 % NaCl/PF 100 ML IVPB SCH (08:35)
[2021-05-07] MEDS: Magnesium Oxide 400 MG TAB PO SCH (08:36)
[2021-05-07] MEDS: levETIRAcetam 500 mg/5 ml Oral Solution PO SCH (08:36)
[2021-05-07] MEDS: Thiamine 100 MG TAB PO SCH (08:36)
[2021-05-07] MEDS: Pantoprazole 40 MG GRANULES PACKET PER TUBE SCH ×2 (08:36→20:33)
[2021-05-07] MEDS: Zinc Sulfate 220 MG CAP PO SCH (08:36)
[2021-05-07] MEDS: Ascorbic Acid 500 mg Chewable Tablet PO SCH ×2 (08:36→20:33)
[2021-05-07] MEDS: Ferrous Sulfate 325 MG TAB PO SCH ×2 (08:36→17:37)
[2021-05-07] MEDS: Nicotine 21 MG PATCH TD SCH (08:36)
[2021-05-07] MEDS: Aspirin Chewable 81 MG TAB PO SCH (08:36)
[2021-05-07] MEDS: Polyethylene Glycol 3350 17 GM Packet PER TUBE SCH (08:37)
[2021-05-07 18:04] LABS: Hemoglobin 6.8 g/dL (12.0-15.5); Mean Corpuscular Hemoglobin 29.7 pg (27.0-33.0); Platelet Count 61 10x3/uL (150-450); Red Blood Cell (RBC) Count 2.29 10x6/uL (3.90-5.03); White Blood Cell (WBC) Count 6.3 10x3/uL (3.5-10.5)
[2021-05-08] MEDS: fentaNYL Citrate-0.9 % NaCl/PF 100 ML IVPB SCH ×2 (01:58→23:38)
[2021-05-08] MEDS: Midazolam In 0.9 % NaCl/PF 100 ML IVPB SCH (01:58)
[2021-05-08 04:42] LABS: Actual Bicarbonate (HCO3a) 20.8 mEq/L (22-28); Base Excess (BEa) -3.4 mEq/L (-2.0 to +3.0); Calcium, Ionized (arterial) 1.12 mmol/L (1.12-1.30); Carboxyhemoglobin (COHb) 0.9 gm% (0.0-3.0); O2 Tension (PaO2), arterial 95.5 mmHg (> 80.0); Potassium - ABG Lab 4.5 mmol/L (3.70-5.30); Puncture Site RRA
[2021-05-08] MEDS: Arformoterol 15 MCG/2 ML NEB NEB SCH ×2 (04:46→18:40)
[2021-05-08] MEDS: Budesonide 0.5 MG/2 ML NEB NEB SCH ×2 (04:46→18:39)
[2021-05-08 05:12] LABS: Hemoglobin 8.4 g/dL (12.0-15.5); Mean Corpuscular HGB CONC 34.3 g/dL (32.0-36.0); Mean Corpuscular Hemoglobin 29.3 pg (27.0-33.0); Mean Corpuscular Volume 85.4 fl (81.6-98.3); Mean Platelet Volume 10.1 fl (7.4-10.4); Platelet Count 64 10x3/uL (150-450); RBC Distribution Width 19.7 % (11.5-14.5); Red Blood Cell (RBC) Count 2.87 10x6/uL (3.90-5.03); White Blood Cell (WBC) Count 7.8 10x3/uL (3.5-10.5)
[2021-05-08] MEDS: Piperacillin/Tazobactam 3.375 GM in Sodium Chloride 0.9% 100 ML IVPB SCH ×2 (05:34→23:39)
[2021-05-08 05:43] LABS: Anion Gap 22 mmol/L (10-20); BUN (Urea Nitrogen) 85 mg/dL (9.8-20.1); Calc. Creatinine Clearance 0 mL/min (70-130); Calcium 7.6 mg/dL (7.8-10.44); Carbon Dioxide 19 mmol/L (23-31); Chloride 94 mmol/L (98-107); Glucose 159 mg/dL (80-115); Potassium 4.6 mmol/L (3.5-5.1); Sodium 130 mmol/L (136-145)
[2021-05-08 06:18] LABS: Band 11 % (5-11); Lymphocytes 6 % (21-51); Monocytes 3 % (0-10); Neutrophil 79 % (42-75)
[2021-05-08 06:56] LABS: MDiff Complete? YES
[2021-05-08] MEDS ORDERED: Vancomycin HCl 750 MG in Sodium Chloride 0.9% 250 ML 250 ML IVPB SCH (09:00)
[2021-05-08] MEDS: Ferrous Sulfate 325 MG TAB PO SCH ×2 (09:30→18:09)
[2021-05-08] MEDS: Zinc Sulfate 220 MG CAP PO SCH (09:30)
[2021-05-08] MEDS: Nicotine 21 MG PATCH TD SCH (09:30)
[2021-05-08] MEDS: Pantoprazole 40 MG VIAL IVP SCH (09:30)
[2021-05-08] MEDS: Magnesium Oxide 400 MG TAB PO SCH (09:30)
[2021-05-08] MEDS: levETIRAcetam 500 mg/5 ml Oral Solution PO SCH (09:30)
[2021-05-08] MEDS: Thiamine 100 MG TAB PO SCH (09:30)
[2021-05-08] MEDS: Ascorbic Acid 500 mg Chewable Tablet PO SCH ×2 (09:30→21:27)
[2021-05-08] MEDS: Polyethylene Glycol 3350 17 GM Packet PER TUBE SCH (13:30)
[2021-05-08] MEDS: Aspirin Chewable 81 MG TAB PO SCH (13:30)
[2021-05-08] MEDS ORDERED: Midazolam In 0.9 % NaCl/PF 100 ML IVPB SCH (23:30)
[2021-05-09 04:22] LABS: Actual Bicarbonate (HCO3a) 21.3 mEq/L (22-28); Base Excess (BEa) -3.2 mEq/L (-2.0 to +3.0); CO2 Tension 35.6 mmHg (35.0-45.0); Calcium, Ionized (arterial) 1.18 mmol/L (1.12-1.30); Carboxyhemoglobin (COHb) 0.3 gm% (0.0-3.0); Hemoglobin (Hb) 9.9 g/dL (12.0-16.0); O2 Tension (PaO2), arterial 73.2 mmHg (> 80.0); Potassium - ABG Lab 4.3 mmol/L (3.70-5.30); Puncture Site LRA; pH, Arterial 7.39 (7.35-7.45)
[2021-05-09 05:21] LABS: Hemoglobin 8.4 g/dL (12.0-15.5); Mean Corpuscular HGB CONC 33.1 g/dL (32.0-36.0); Mean Corpuscular Hemoglobin 28.8 pg (27.0-33.0); Mean Platelet Volume 10.5 fl (7.4-10.4); Red Blood Cell (RBC) Count 2.92 10x6/uL (3.90-5.03); White Blood Cell (WBC) Count 5.2 10x3/uL (3.5-10.5)
[2021-05-09 05:23] LABS: Platelet Count 68 10x3/uL (150-450)
[2021-05-09 05:55] LABS: Band 14 % (5-11); Lymphocytes 4 % (21-51); Monocytes 2 % (0-10)
[2021-05-09 07:24] LABS: Neutrophil 80 % (42-75)
[2021-05-09] MEDS ORDERED: HumaLOG 300 UNITS/3 ML VIAL SC PRN (07:35)
[2021-05-09] MEDS: Budesonide 0.5 MG/2 ML NEB NEB SCH (07:41)
[2021-05-09] MEDS: Arformoterol 15 MCG/2 ML NEB NEB SCH (07:41)
[2021-05-09] MEDS: Ferrous Sulfate 325 MG TAB PO SCH (08:48)
[2021-05-09] MEDS: Zinc Sulfate 220 MG CAP PO SCH (08:49)
[2021-05-09] MEDS: Pantoprazole 40 MG VIAL IVP SCH ×2 (08:49→08:53)
[2021-05-09] MEDS: Nicotine 21 MG PATCH TD SCH (08:50)
[2021-05-09] MEDS: Polyethylene Glycol 3350 17 GM Packet PER TUBE SCH (08:50)
[2021-05-09] MEDS: Ascorbic Acid 500 mg Chewable Tablet PO SCH (08:51)
[2021-05-09] MEDS: Aspirin Chewable 81 MG TAB PO SCH (08:51)
[2021-05-09] MEDS: Magnesium Oxide 400 MG TAB PO SCH (08:52)
[2021-05-09] MEDS: Thiamine 100 MG TAB PO SCH (08:56)
[2021-05-09] MEDS: levETIRAcetam 500 mg/5 ml Oral Solution PO SCH (08:59)
[2021-05-09 09:29] LABS: Albumin 2.7 g/dL (3.4-4.8); Anion Gap 21 mmol/L (10-20); BUN (Urea Nitrogen) 82 mg/dL (9.8-20.1); BUN/Creatinine Ratio 36.77; Calc. Creatinine Clearance 28 mL/min (70-130); Calcium 8.6 mg/dL (7.8-10.44); Carbon Dioxide 21 mmol/L (23-31); Chloride 95 mmol/L (98-107); Glucose 137 mg/dL (80-115); Phosphorus 4.1 mg/dL (2.3-4.7); Potassium 4.6 mmol/L (3.5-5.1); Sodium 132 mmol/L (136-145)
[2021-05-09 09:48] LABS: Vancomycin, Random 20.1 ug/mL (See Comment)
[2021-05-09] MEDS: Piperacillin/Tazobactam 3.375 GM in Sodium Chloride 0.9% 100 ML IVPB SCH (10:20)
[2021-05-09] MEDS: fentaNYL Citrate-0.9 % NaCl/PF 100 ML IVPB SCH (11:39)
[2021-05-09] MEDS ORDERED: Morphine 4 MG/ML VIAL SLOW IVP PRN (15:15)
[2021-05-09] MEDS ORDERED: Lorazepam 2 MG/ML VIAL SLOW IVP PRN (15:16)
[2021-05-09] MEDS ORDERED: Morphine 4 MG/ML VIAL SLOW IVP SCH (15:30)
[2021-05-09] MEDS ORDERED: Lorazepam 2 MG/ML VIAL SLOW IVP SCH (15:30)
[2021-05-09 18:28] VITALS: BP 103/68; TEMP 98.2
== END 2021-05-09 18:45 | disposition expired | DRG 870 ==
LOC: CSHERS 16:07 → CSHERHOLD 20:14 → CSHTELE 04-17 11:53 → CSHICU 04-26 11:40
PROVIDERS: ADMIT Family Medicine; ATTEND Internal Medicine
PROC: 8E0ZXY6 Isolation (ICD-10-PCS; principal; 2021-04-16)
PROC: 3E03329 Introduction of Other Anti-infective into Peripheral Vein, Percutaneous Approach (ICD-10-PCS; 2021-04-16)
PROC: 5A1955Z Respiratory Ventilation, Greater than 96 Consecutive Hours (ICD-10-PCS; 2021-04-27)
PROC: 5A0935A Assistance with Respiratory Ventilation, Less than 24 Consecutive Hours, High Flow/Velocity Cannula (ICD-10-PCS; 2021-04-27)
PROC: 5A09357 Assistance with Respiratory Ventilation, Less than 24 Consecutive Hours, Continuous Positive Airway Pressure (ICD-10-PCS; 2021-04-27)
PROC: 0BH17EZ Insertion of Endotracheal Airway into Trachea, Via Natural or Artificial Opening (ICD-10-PCS; 2021-04-27)
PROC: 3E043XZ Introduction of Vasopressor into Central Vein, Percutaneous Approach (ICD-10-PCS; 2021-04-28)
PROC: 02HV33Z Insertion of Infusion Device into Superior Vena Cava, Percutaneous Approach (ICD-10-PCS; 2021-04-28)
PROC: B548ZZA Ultrasonography of Superior Vena Cava, Guidance (ICD-10-PCS; 2021-04-28)
PROC: 06HY33Z Insertion of Infusion Device into Lower Vein, Percutaneous Approach (ICD-10-PCS; 2021-04-30)
PROC: 5A1D70Z Performance of Urinary Filtration, Intermittent, Less than 6 Hours Per Day (ICD-10-PCS; 2021-04-30)
PROC: 0W9930Z Drainage of Right Pleural Cavity with Drainage Device, Percutaneous Approach (ICD-10-PCS; 2021-05-06)
PROC: 30233N1 Transfusion of Nonautologous Red Blood Cells into Peripheral Vein, Percutaneous Approach (ICD-10-PCS; 2021-05-07)
DX: A41.89 Other specified sepsis (principal); U07.1 COVID-19; N17.0 Acute kidney failure with tubular necrosis; J12.82 Pneumonia due to coronavirus disease 2019; J15.212 Pneumonia due to Methicillin resistant Staphylococcus aureus; J96.01 Acute respiratory failure with hypoxia; J96.02 Acute respiratory failure with hypercapnia; J86.9 Pyothorax without fistula; R65.21 Severe sepsis with septic shock; G92.8 Other toxic encephalopathy; J98.11 Atelectasis; N13.30 Unspecified hydronephrosis; D61.818 Other pancytopenia; I13.0 Hypertensive heart and chronic kidney disease with heart failure and stage 1 through stage 4 chronic kidney disease, or unspecified chronic kidney disease; R64 Cachexia; J44.0 Chronic obstructive pulmonary disease with (acute) lower respiratory infection; E87.1 Hypo-osmolality and hyponatremia; F10.239 Alcohol dependence with withdrawal, unspecified; J44.1 Chronic obstructive pulmonary disease with (acute) exacerbation; E87.0 Hyperosmolality and hypernatremia; I47.1 Supraventricular tachycardia; D62 Acute posthemorrhagic anemia; E87.2 Acidosis; J91.8 Pleural effusion in other conditions classified elsewhere; Z51.5 Encounter for palliative care; Z66 Do not resuscitate; F17.210 Nicotine dependence, cigarettes, uncomplicated; I50.9 Heart failure, unspecified; E03.9 Hypothyroidism, unspecified; Z96.643 Presence of artificial hip joint, bilateral; N18.9 Chronic kidney disease, unspecified; L89.152 Pressure ulcer of sacral region, stage 2; E87.6 Hypokalemia; K74.60 Unspecified cirrhosis of liver; E87.5 Hyperkalemia; I48.0 Paroxysmal atrial fibrillation; E55.9 Vitamin D deficiency, unspecified; D63.1 Anemia in chronic kidney disease; I34.0 Nonrheumatic mitral (valve) insufficiency; R19.02 Left upper quadrant abdominal swelling, mass and lump; N28.1 Cyst of kidney, acquired; M54.6 Pain in thoracic spine; Z82.3 Family history of stroke; Z82.49 Family history of ischemic heart disease and other diseases of the circulatory system; Z79.899 Other long term (current) drug therapy; Z79.890 Hormone replacement therapy; Z68.28 Body mass index [BMI] 28.0-28.9, adult; Z78.1 Physical restraint status
CPT/HCPCS: 36415; 36416; 36430; 36600; 70450; 71045; 71250; 74176; 74177; 76770; 80048; 80053; 80069; 80202; 81001; 82040; 82042; 82140; 82274; 82306; 82550; 82553; 82570; 82607; 82728; 82746; 82784; 82805; 82945; 83010; 83540; 83550; 83605; 83615; 83630; 83735; 83880; 83916; 83970; 84100; 84156; 84157; 84166; 84300; 84425; 84443; 84484; 84540; 85007; 85025; 85027; 85046; 85060; 85379; 85610; 85652; 86140; 86704; 86706; 86803; 86850; 86900; 86901; 87040; 87070; 87077; 87149; 87186; 87205; 87340; 87529; 89051; 89220; 90935; 93005; 93010; 93306; 94002; 94003; 94640; 94660; 94664; 94760; 96365; 96375; C9113; G0257; J0456; J0692; J0696; J1100; J1644; J1650; J1815; J1940; J1953; J2001; J2060; J2270; J2405; J2543; J2920; J2930; J3370; J3411; J3475; J3480; J3490; J7050; J7070; J7120; J7611; J7620; J7626; P9016; P9045; P9047; U0002